=== PATIENT | female | born 1970 | race Caucasian/White ===

== ENCOUNTER 2018-10-09 16:47 | Emergency (ER) | payer MEDICAID ==
[~2018-10-09] VITALS: Ht 162.6 cm; Wt 83.2 kg
[~2018-10-09 16:47] MED LIST: AMOXICILLIN500 MG OR; FLEXERIL PO; NO HOME MEDS; ULTRAM50 M1 PO
[2018-10-09 17:36] LABS: URINE BILIRUBIN - DIPSTICK NEGATIVE (NEGATIVE); URINE BLOOD DIPSTICK LARGE (NEGATIVE); URINE COLOR YELLOW; URINE GLUCOSE - DIPSTICK NEGATIVE (NEGATIVE); URINE KETONE NEGATIVE (NEGATIVE); URINE LEUK ESTERASE TRACE (NEGATIVE); URINE PROTEIN - DIPSTICK NEGATIVE (NEG-TRACE); URINE SPECIFIC GRAVITY 1.025; URINE UROBILINOGEN - DIPSTICK 0.2 E.U./dL (0.2)
[2018-10-09 17:37] LABS: URINE NITRITE - DIPSTICK POSITIVE (Negative)
[2018-10-09 17:39] LABS: BARBITURATES NEGATIVE (NEGATIVE); COCAINE NEGATIVE (NEGATIVE); METHADONE NEGATIVE (NEGATIVE); TETRAHYDROCANNABIONOL NEGATIVE (NEGATIVE); TRICYLIC ANTIDEPRESSANTS NEGATIVE (NEGATIVE)
[2018-10-09 17:40] LABS: OXCYCODONE NEGATIVE (NEGATIVE)
[2018-10-09 17:45] LABS: URINE BACTERIA MANY hpf; URINE SQUAMOUS EPITHELIAL CELL FEW EPI/hpf (0-FEW)
[2018-10-09] MEDS ORDERED: KEFLEX250 MG PO (18:15)
[2018-10-09 18:30] VITALS: BP 152/97
== END 2018-10-09 18:31 | disposition home or self-care (01) ==
LOC: ED 16:47
PROVIDERS: Emergency Medicine
DX: N39.0 Urinary tract infection, site not specified (principal); R10.31 Right lower quadrant pain; F15.90 Other stimulant use, unspecified, uncomplicated; B96.20 Unspecified Escherichia coli [E. coli] as the cause of diseases classified elsewhere

== ENCOUNTER 2019-11-04 | Emergency (ER) | payer OTHER ==
[~2019-11-04] MED LIST changes: +KEFLEX250 MG PO
[2019-11-04] MEDS ORDERED: LASIX20 MG PO (10:37)
[2019-11-04] MEDS ORDERED: LISINOPRIL20 MG PO (10:37)
[2019-11-04] MEDS ORDERED: RANITIDINE150 M1 PO (10:37)
[2019-11-04] MEDS ORDERED: VALPROIC ACD250 M1 PO (10:38)
[2019-11-04 11:32] LABS: HEMATOCRIT 32.3 % (37.0-47.0); HEMOGLOBIN 9.9 g/dl (12.0-16.0); IMMATURE GRANULOCYTES 0.7 % (0.0-5.0); MEAN CORPUSCULAR HGB 25.5 pG CALC (26.0-32.0); MEAN CORPUSCULAR HGB CONC 30.7 g/L CALC (32.0-36.0); NEUT# 6.86 thou/uL (2.00-7.15); RED BLOOD COUNT 3.88 mill/uL (4.20-5.60); RED CELL DISTRI WIDTH 23.8 % (11.5-15.5)
[2019-11-04 11:33] LABS: MEAN CELL VOLUME 83.2 fL CALC (80.0-100.0)
[2019-11-04 11:50] LABS: ALBUMIN 3.8 g/dL (3.2-5.0); ALKALINE PHOSPHATASE 124 u/l (38-126); ANION GAP 14 (6-22 (CALC)); BILIRUBIN, TOTAL 0.6 mg/dL (0.0-1.4); BUN 8 mg/dL (7-17); BUN/CREATININE RATIO 12 (12-20 (CALC)); CARBON DIOXIDE 29 mmol/l (22-30); CHLORIDE 97 mmol/l (95-108); CREATININE 0.7 mg/dL (0.5-1.0); GFR > 60 ML/MIN (>=60 (CALC)); GFR FOR AFR.AMER. > 60 ML/MIN (>=60 (CALC)); LIPASE 197 u/l (23-300); POTASSIUM 3.8 mmol/l (3.5-5.1); SGOT/AST 32 u/l (14-36); SODIUM 135 mmol/l (137-146); TOTAL PROTEIN 7.4 g/dL (6.3-8.2)
[2019-11-04 12:51] LABS: URINE BILIRUBIN - DIPSTICK NEGATIVE (NEGATIVE); URINE BLOOD DIPSTICK MODERATE (NEGATIVE); URINE COLOR YELLOW; URINE GLUCOSE - DIPSTICK NEGATIVE (NEGATIVE); URINE KETONE NEGATIVE (NEGATIVE); URINE LEUK ESTERASE MODERATE (NEGATIVE); URINE NITRITE - DIPSTICK NEGATIVE (Negative); URINE PROTEIN - DIPSTICK NEGATIVE (NEG-TRACE); URINE SPECIFIC GRAVITY <=1.005; URINE UROBILINOGEN - DIPSTICK 0.2 E.U./dL (0.2)
[2019-11-04 13:21] LABS: URINE BACTERIA FEW hpf; URINE SQUAMOUS EPITHELIAL CELL FEW EPI/hpf (0-FEW); URINE TRANSITIONAL EPI. CELLS FEW hpf
[2019-11-04 13:22] LABS: URINE RBC 0-2 RBC/hpf (0-5)
[2019-11-04] MEDS ORDERED: PROCHLORPER25 MG RE (13:50)
[2019-11-07] MEDS ORDERED: XANAX0.5 MG PO (16:55)
[2019-11-08] MEDS ORDERED: LISINOPRIL20 MG PO (15:19)
[2019-11-08] MEDS ORDERED: XANAX0.5 MG PO (15:20)
[2019-11-08] MEDS ORDERED: VALPROIC ACD250 M3 PO (15:21)
== END 2019-11-04 14:40 | disposition home or self-care (01) ==
PROVIDERS: Family Medicine
DX: R10.9 Unspecified abdominal pain (principal); R11.2 Nausea with vomiting, unspecified; I10 Essential (primary) hypertension; Z90.81 Acquired absence of spleen; Z93.0 Tracheostomy status; T50.906A Underdosing of unspecified drugs, medicaments and biological substances, initial encounter; Z91.128 Patient's intentional underdosing of medication regimen for other reason; F17.203 Nicotine dependence unspecified, with withdrawal

== ENCOUNTER 2019-11-09 | Inpatient (IN) | payer OTHER ==
--- NOTE | 2019-11-07 14:22 | NUR ---
PATIENT TO ROOM VIA EMS. ALERT AND ORIENTED X3.
[2019-11-07 14:40] LABS: HEMATOCRIT 30.7 % (37.0-47.0); HEMOGLOBIN 9.5 g/dl (12.0-16.0); IMMATURE GRANULOCYTES 0.4 % (0.0-5.0); MEAN CELL VOLUME 82.7 fL CALC (80.0-100.0); MEAN CORPUSCULAR HGB 25.6 pG CALC (26.0-32.0); MEAN CORPUSCULAR HGB CONC 30.9 g/L CALC (32.0-36.0); NEUT# 8.83 thou/uL (2.00-7.15); RED BLOOD COUNT 3.71 mill/uL (4.20-5.60)
--- NOTE | 2019-11-07 15:20 | NUR ---
PT RESTING ON STRETCHER; NO S/S OF DISTRESS NOTED; VSS; PT DENIES ANY NEEDS AT THIS TIME; PT ADVISED OF POC; AND CONTINUED WAIT TIME; WILL CONTINUE TO MONITOR
[2019-11-07 16:11] LABS: ALBUMIN 3.3 g/dL (3.2-5.0); ALKALINE PHOSPHATASE 116 u/l (38-126); ANION GAP 14 (6-22 (CALC)); BILIRUBIN, TOTAL 0.5 mg/dL (0.0-1.4); BUN 8 mg/dL (7-17); BUN/CREATININE RATIO 12 (12-20 (CALC)); CARBON DIOXIDE 26 mmol/l (22-30); CHLORIDE 101 mmol/l (95-108); CREATININE 0.7 mg/dL (0.5-1.0); GFR > 60 ML/MIN (>=60 (CALC)); GFR FOR AFR.AMER. > 60 ML/MIN (>=60 (CALC)); POTASSIUM 3.5 mmol/l (3.5-5.1); SGOT/AST 22 u/l (14-36); SODIUM 137 mmol/l (137-146); TOTAL PROTEIN 6.8 g/dL (6.3-8.2)
--- NOTE | 2019-11-07 16:20 | NUR ---
PT RESTING ON STRETCHER; DR CASTLE AT BEDSIDE TO DISCUSS POC AND PLAN TO ADMIT; VSS; WILL CONTINUE TO MONITOR
--- NOTE | 2019-11-07 17:20 | NUR ---
PT RESTING ON STRETCHER; NO S/S OF DISTRESS NOTED; PT STATES SHE HASN'T HAD A "GOOD BM SINCE DISCHARGE ON SATURDAY"; VSS; PT ADVISED ON CONTINUED WAIT TIME; WILL CONTINUE TO MONITOR
--- NOTE | 2019-11-07 18:00 | NUR ---
PT C/O NAUSEA AND SMALL AMOUNT OF EMESIS NOTED; PT DENIES NEED FOR ANY MEDICATIONS AT THIS TIME; VSS; COOL RAG GIVEN FOR COMFORT; FAMILY AT BEDSIDE; WILL CONTINUE TO MONITOR
--- NOTE | 2019-11-07 18:26 | NUR ---
PATIENT RECEIVED INTO ROOM 262 FROM ER VIA STRETCHER. PATIENT AMBULATED TO STANDING SCALE FOR ADMISSION WEIGHT, 174.5#. ASSISTED INTO BED, ORIENTED TO SURROUNDINGS. EXPLAINED USE OF CALL PABLO AND BED CONTROLS.
[2019-11-07 18:29] VITALS: BP 130/84
--- NOTE | 2019-11-07 18:30 | NUR ---
Admission Note Report Given to: ASHLEY ACOSTA Transported by: Wheelchair X Stretcher Transported with: X Nurse Transporter X Patent IV O2 Liquefaction And Regasification Helper Location: ICU X MS2
--- NOTE | 2019-11-07 19:10 | NUR ---
REPORT FROM JUVENTINO RAMIREZ. PT SITTING UP IN BED NO APPARENT DISTRESS NOTED. PT DENIES ANY PAIN OR DISCOMFORT. IV SITE APPEARS HEALTHY. DISCUSSED POC. PT VERBALIZED UNDERSTANDING. CALL LIGHT WITHIN REACH. WILL CONTINUE TO MONITOR.
--- NOTE | 2019-11-07 19:30 | NUR ---
ADMISSION ASSESSMENT PART A COMPLETED. REPORT GIVEN TO Kiki PRASAD/FELA. PATIENT PROVIDED WITH DINNER.
--- NOTE | 2019-11-07 23:50 | NUR ---
PT CALLED FOR ASSISTANCE FROM BATHROOM. PT TOOK SHOWER. PROVIDED CLEAN GOWN AND LINENS AT THIS TIME. ASSISTED PT BACK TO BED. PT REQUESTING ABD PAD FOR ABD WOUND, PT APPLIED. NO WOUND CARE ORDERS AT THIS TIME. PT DENIES ANY OTHER WANTS OR NEEDS. CALL LIGHT WITHIN REACH. WILL CONTINUE TO MONITOR.
[2019-11-08 03:20] VITALS: BP 128/79
--- NOTE | 2019-11-08 03:23 | NUR ---
PT RESTING IN BED WITH EYES CLOSED. NO APPARENT DISTRESS NOTED. CALL LIGHT WITHIN REACH. WILL CONTINUE TO MONITOR.
[2019-11-08 05:35] LABS: HEMATOCRIT 29.5 % (37.0-47.0); HEMOGLOBIN 9.1 g/dl (12.0-16.0); IMMATURE GRANULOCYTES 0.4 % (0.0-5.0); MEAN CELL VOLUME 84.5 fL CALC (80.0-100.0); MEAN CORPUSCULAR HGB 26.1 pG CALC (26.0-32.0); MEAN CORPUSCULAR HGB CONC 30.8 g/L CALC (32.0-36.0); NEUT# 8.06 thou/uL (2.00-7.15); RED BLOOD COUNT 3.49 mill/uL (4.20-5.60); RED CELL DISTRI WIDTH 23.8 % (11.5-15.5)
[2019-11-08 05:45] LABS: ANION GAP 11 (6-22 (CALC)); BUN 6 mg/dL (7-17); BUN/CREATININE RATIO 9 (12-20 (CALC)); CARBON DIOXIDE 26 mmol/l (22-30); CHLORIDE 104 mmol/l (95-108); CREATININE 0.6 mg/dL (0.5-1.0); GFR > 60 ML/MIN (>=60 (CALC)); GFR FOR AFR.AMER. > 60 ML/MIN (>=60 (CALC)); MAGNESIUM 1.4 mg/dL (1.6-2.3); POTASSIUM 3.9 mmol/l (3.5-5.1); SODIUM 138 mmol/l (137-146)
--- NOTE | 2019-11-08 06:03 | NUR ---
JUICE PROVIDED UPON REQUEST.
--- NOTE | 2019-11-08 07:05 | NUR ---
REPORT RECEIVED FROM FELA HUSSEIN;PT APPEARS TO BE SLEEPING IN SEMI FOWLERS POSITION;NO S/S OF DISTRESS NOTED;RESPIRATIONS EVEN AND UNLABORED ON RA;IV FLUIDS INFUSING WITH EASE;CONTACT PRECAUTIONS IN PLACE;ALL SAFETY PRECAUTIONS NOTED WITH BED IN THE LOWEST POSITION AND CALL LIGHT IN REACH;WILL CONTINUE TO MONITOR
--- NOTE | 2019-11-08 07:38 | NUR ---
Vancomycin consult Age: 49 yo Serum creatinine: 0.6 mg/dL Height: 64.0 Inches Weight (kg): 79 IBW (kg): 54.70 Dosing wt(kg): 79 Estimated Creatinine clearance (ml/min): 100 Vd (liters): 55.3 (factor used: 0.7 L/kg) Severo (hr-1): 0.087 Half life (hrs): 7.97 Continue 1000 mg q 12 hrs at 0500 & 1700, with an expected Cpeak of 26 mcg/ml and an expected Ctrough of 11 mcg/ml. Trough 11/09/19 at 0400.
--- NOTE | 2019-11-08 07:40 | NUR ---
PT RESTING AT BEDSIDE,A&O X3;VS OBTAINED AND ASSESSMENT COMPLETED;PT DENIES ANY CURRENT PAIN OR DISCOMFORTS,PAIN SCALE AND REPORTING EDUCATED;ABDOMEN SOFT ON PALPATION AND ACTIVE IN ALL 4 QUADRANTS;ABDOMINAL DRESSING CDI;STRONG PEDAL PULSES;DRESSING TO COCCYX CDI;EMS #18G TO RIGTH HAND INFUSING NS @ 80ML/HR,SITE APPEARS HEALTHY;CONTACT PRECAUTIONS REMAIN IN PLACE;PT DENIES ANY ADDITIONAL NEEDS AND IS ENCOURAGED TO CALL FOR ASSISTANCE IF NEEDED;CALL LIGHT IN REACH;WILL CONTINUE TO MONITOR
[2019-11-08 07:47] VITALS: BP 156/86
--- NOTE | 2019-11-08 10:31 | NUR ---
CONSENT OBTAINED TO REQUEST MEDICAL RECORDS FROM [facility] FOR PREVIOUS ADMISSION RECORDS.REQUEST FAXED TO REPLACED BY [facility] AT THIS TIME.
--- NOTE | 2019-11-08 11:10 | NUR ---
PT REQUESTING XANAX FOR ANXIETY.PT CURRENTLY ONLY HAS A [facility] ORDER,JOCELIN RAND NOTIFIED OF REQUEST;NEW ORDER RECEIVED.
--- NOTE | 2019-11-08 11:20 | NUR ---
PT RESTING IN SEMI FOWLERS POSITION WITH VISITOR AT BEDSIDE;REPIRATIONS EVEN AND UNLABORED ON RA;IV SITE PATENT INFUSING WITH EASE,MAG CURRENTLY INFUSING PER ORDER;PT MEDICATED WITH X1 XANAX 0.5MG PO FOR ANXIETY AT THIS TIME;PT EDUCATED ON THE NEED FOR A UA SAMPLE AND VERBALIZES UNDERSTANDING;PT ALSO PROVIDED AN I.S. PER REQUEST AND IS ENCOURAGED TO USE 10X PER HOUR,PT DEMONSTARTED USAGE;PT DENIES ANY ADDITIONAL NEEDS AND IS ENCOURAGED TO CALL FOR ASSISTANCE IF NEEDED;CALL LIGHT IN REACH;WILL CONTINUE TO MONITOR
--- NOTE | 2019-11-08 12:40 | NUR ---
AT BEDSIDE DISCUSSING POC WITH PT AND VISITOR.
--- NOTE | 2019-11-08 12:48 | NUR ---
X2 ATTEMPTS AT NEW IV SITE UNSUCCESSFUL, PER IT IS OK TO KEEP EMS IV SITE BECAUSE PICCLINE SHOULD BE PLACED IN THE MORNING 11/09/19.
[2019-11-08 15:24] VITALS: BP 117/61
--- NOTE | 2019-11-08 16:40 | NUR ---
PT RESTING IN SUPINE POSITION;RESPIRATIONS EVEN AND UNLABORED ON RA;PT DENIES ANY CURRENT PAIN OR NEEDS;IV SITE PATENT INFUSING NS WITH EASE PER ORDER,ABX HUNG AT THIS TIME;AQUACEL DRESSING APPLIED TO COCCYX;PT REQUESTS TO SPEAK TO MORE REGARDING PLANS FOR I&D OF ABDOMEN TOMORROW 11/09/19 BEFORE OBTAINING CONSENT;PT DENIES ANY ADDITIONAL NEEDS AND IS ENCOURAGED TO CALL FOR ASSISTANCE IF NEEDED;CALL LIGHT IN REACH;WILL CONTINUE TO MONITOR
[2019-11-08 17:08] LABS: URINE BILIRUBIN - DIPSTICK NEGATIVE (NEGATIVE); URINE BLOOD DIPSTICK SMALL (NEGATIVE); URINE COLOR YELLOW; URINE GLUCOSE - DIPSTICK NEGATIVE (NEGATIVE); URINE KETONE NEGATIVE (NEGATIVE); URINE LEUK ESTERASE TRACE (NEGATIVE); URINE NITRITE - DIPSTICK NEGATIVE (Negative); URINE PH 5.5 (4.5-8.0); URINE PROTEIN - DIPSTICK NEGATIVE (NEG-TRACE); URINE UROBILINOGEN - DIPSTICK 0.2 E.U./dL (0.2)
[2019-11-08 17:16] LABS: URINE SQUAMOUS EPITHELIAL CELL FEW EPI/hpf (0-FEW)
[2019-11-08 19:00] VITALS: BP 138/81
--- NOTE | 2019-11-08 19:05 | NUR ---
REPORT FROM SHAUNNA CHAHAL. PT SITTING UP IN BED. VISITORS PRESENT IN ROOM. PT ALERT AND ORIENTED. PT REQUESTING TO BE UNHOOKED FROM IV TO AMBULATE IN HALLS. PUMP UNPLUGGED FROM WALL AT THIS TIME. DISCUSSED POC. PT VERBALIZED UNDERSTANDING. CALL LIGHT WITHIN REACH. WILL CONTINUE TO MONITOR.
--- NOTE | 2019-11-08 19:25 | NUR ---
PT AMBULATING IN [place] WITH VISITOR.
--- NOTE | 2019-11-08 19:44 | NUR ---
PT AMBULATED FOR ICU WAITING ROOM FOUND WITH THREE MALES SITTING IN THERE STATING SHE WAS JUST RESTING. PT RETURNED TO ROOM VIA WHEELCHAIR ACCOMPAINED BY THREE MALES.
--- NOTE | 2019-11-08 19:44 | NUR ---
PT AMBULATED TO ICU WAITING ROOM FOUND WITH THREE MALES SITTING IN THERE STATING SHE WAS JUST RESTING. PT RETURNED TO ROOM VIA WHEELCHAIR ACCOMPAINED BY THREE MALES.
--- NOTE | 2019-11-08 21:16 | NUR ---
TWO VISITORS IN TO SEE PT AT THIS TIME.
[~2019-11-09] MED LIST changes: +LASIX20 MG PO; +LISINOPRIL20 MG PO; +PROCHLORPER25 MG RE; +RANITIDINE150 M1 PO; +VALPROIC ACD250 M1 PO; +VALPROIC ACD250 M3 PO; +XANAX0.5 MG PO
--- NOTE | 2019-11-09 00:15 | NUR ---
PT RESTING IN BED WITH EYES CLOSED. ATTEMPTED TO WAKE PT AT THIS TIME TO EDUCATE ON NPO ORDER FOR PROCEDURE IN AM. PT OPENED EYES BRIEFLY AND ROLLED OVER AND PULLED COVERS UP. ALL FOOD AND DRINKS REMOVED FROM BEDSIDE TABLE AND PLACED ON COUNTER ACROSS ROOM. WILL CONTINUE TO MONITOR.
[2019-11-09 04:28] LABS: HEMATOCRIT 29.3 % (37.0-47.0); HEMOGLOBIN 9.1 g/dl (12.0-16.0); MEAN CORPUSCULAR HGB 26.1 pG CALC (26.0-32.0); MEAN CORPUSCULAR HGB CONC 31.1 g/L CALC (32.0-36.0); RED BLOOD COUNT 3.49 mill/uL (4.20-5.60); RED CELL DISTRI WIDTH 23.9 % (11.5-15.5)
[2019-11-09 04:32] LABS: ANION GAP 10 (6-22 (CALC)); BUN 6 mg/dL (7-17); BUN/CREATININE RATIO 9 (12-20 (CALC)); CARBON DIOXIDE 26 mmol/l (22-30); CHLORIDE 109 mmol/l (95-108); CREATININE 0.7 mg/dL (0.5-1.0); GFR > 60 ML/MIN (>=60 (CALC)); GFR FOR AFR.AMER. > 60 ML/MIN (>=60 (CALC)); POTASSIUM 3.6 mmol/l (3.5-5.1); SODIUM 141 mmol/l (137-146)
--- NOTE | 2019-11-09 04:51 | NUR ---
PT REQUESTING ICE. PT NPO AT THIS TIME. PT EMOTIONAL, PERCUSSION INSTRUCTOR EDUCATED PT AT THIS TIME ABOUT PROCEDURE AND IMPORTANCE OF REMAINING NPO. PT VERBALIZED UNDERSTANDING. IV ABT INFUSING WITHOUT DIFFICULTY. CALL LIGHT WITHIN REACH. WILL CONTINUE TO MONITOR.
[2019-11-09 04:54] VITALS: BP 127/80
--- NOTE | 2019-11-09 07:52 | NUR ---
PRELIMINARY BLOOD CULTURE SHOW TWO BOTTLES GROWING GRAM POSITIVE COCCI CALLED TO DR NORTON. PT HAS COVERAGE WITH VANCOMYCIN AND CEFEPIME.
--- NOTE | 2019-11-09 08:04 | NUR ---
ASSESSMENT DONE. PT IS A&O X3 BUT FORGETFUL AT TIMES. PT HAS ANXIETY TEARFUL. MEDICATED PT WITH DILAUDID. IVF FLUIDS INFUSING WELL. PT HAS 18 EMS SITE BUT REFUSING IT TO BE CHANGE. DRESSING IN ABD. CALL LIGHT IN REACH.
[2019-11-09 08:05] VITALS: BP 143/86
--- NOTE | 2019-11-09 08:05 | NUR ---
THOMAS ALVAREZ AT BEDSIDE TO DISCUSS POC. PT IS ANXIOUS. CALL LIGHT IN REACH.
--- NOTE | 2019-11-09 08:42 | NUR ---
CALLED TOBY MONROE FROM X-RAY RE:JOCELIN RAMSEYRNS THAT PT HAS BEEN TAKING XARELTO AND DOES NOT WANT A PICC LINE AT THIS TIME.
--- NOTE | 2019-11-09 10:00 | NUR ---
INGRIS [phone] FROM [facility] CALLED FOR UPDATE Re: PT.
--- NOTE | 2019-11-09 12:20 | NUR ---
WENT DOWN TO CT TO MEDICATED PT WITH DILAUDID AND ATIVAN PER JOCELIN ALVAREZ.
--- NOTE | 2019-11-09 13:17 | NUR ---
PT IS TEARFUL STATING HAVING PAIN. MEDICATED PT WITH ULTRAM. ICE CHIPS PROVIDED AND PO FLUIDS. FRIEND IN ROOM. YANDY IN PLACE. CALL LIGHT IN REACH.
[2019-11-09 15:00] VITALS: BP 97/63
--- NOTE | 2019-11-09 15:20 | NUR ---
PT IS RESTING IN BED VISITING IN ROOM WITH FAMILY. CALL LIGHT IN REACH.
--- NOTE | 2019-11-09 18:26 | NUR ---
CALLED [facility] AT REGARDING THIS PT BEING PLACED ON WOUND VAC IN THE AM BY DR. MULLINS. CALLED AND SPOKE TO GOGO WAS GIVEN INFORMATION STATED THEY WILL BRING A WOUND VAC. THE CONFIRMATION NUMBER IS [id number].
--- NOTE | 2019-11-09 18:43 | NUR ---
CALLED [facility] AT REGARDING THIS PT. SPOKE TO GILBERT. TECH IS SUPPOSE TO CALL WHEN CLOSE WITH MATTRESS. CONFIRMATION NUMBER IS [id number].
--- NOTE | 2019-11-09 19:00 | NUR ---
RECEIVED REPORT FROM NURSE AIDE, PATIENT RESTING IN BED, EYES CLOSED, WITH EVEN UNLABORED BREATHING CALL LIGHT AT REACH
[2019-11-09 19:14] VITALS: BP 125/75
--- NOTE | 2019-11-09 23:00 | NUR ---
DRESSING ON ABDOMEN REMOVED, CLEANED INCISION WITH SALINE, AND PAT DRY COVERED WITH NEW CLEAN DR DRESSING
--- NOTE | 2019-11-10 | NUR ---
PATIENT APPEARS TO BE RESTING IN BED WITH EYES CLOSED, WITH YANDY DRAIN ON LEFT UPPER QUADRANT DRAINING HASSAN COLORED FLUID, CALL LIGHT AT REACH.
[2019-11-10 01:04] VITALS: BP 98/59
[2019-11-10 03:34] VITALS: BP 115/68
--- NOTE | 2019-11-10 03:38 | NUR ---
FLAT SORTING MACHINE CLERK NOTIFIED THAT PATIENT HAS AN ORDER FOR AN AIR MATRESS
--- NOTE | 2019-11-10 04:31 | NUR ---
PATIENT REMAINS ON CONTACT ISOLATION FOR MRSA IN BLOOD, APPEARS TO BE SLEEPING WITH EYES CLOSED CALL LIGHT AT REACH.
[2019-11-10 06:30] LABS: HEMATOCRIT 29.8 % (37.0-47.0); HEMOGLOBIN 8.7 g/dl (12.0-16.0); IMMATURE GRANULOCYTES 0.4 % (0.0-5.0); MEAN CELL VOLUME 85.9 fL CALC (80.0-100.0); MEAN CORPUSCULAR HGB 25.1 pG CALC (26.0-32.0); MEAN CORPUSCULAR HGB CONC 29.2 g/L CALC (32.0-36.0); NEUT# 7.45 thou/uL (2.00-7.15); RED BLOOD COUNT 3.47 mill/uL (4.20-5.60); RED CELL DISTRI WIDTH 23.7 % (11.5-15.5)
--- NOTE | 2019-11-10 06:55 | NUR ---
REPORT RECEIVED FROM ASHLEY ARGUETA;PT APPEARS TO BE SLEEPING IN SEMI FOWLERS POSITION;NO S/S OF DISTRESS NOTED;RESPIRATIONS EVEN AND UNLABORED ON RA;IV FLUIDS INFUSING WITH EASE PER ORDER;ALL SAFETY PRECAUTIONS IN PLACE WITH BED IN THE LOWEST POSITION AND CALL LIGHT IN REACH;WILL CONTINUE TO MONITOR
[2019-11-10 07:00] LABS: ANION GAP 12 (6-22 (CALC)); BUN 7 mg/dL (7-17); BUN/CREATININE RATIO 10 (12-20 (CALC)); CARBON DIOXIDE 23 mmol/l (22-30); CHLORIDE 103 mmol/l (95-108); CREATININE 0.7 mg/dL (0.5-1.0); GFR > 60 ML/MIN (>=60 (CALC)); GFR FOR AFR.AMER. > 60 ML/MIN (>=60 (CALC)); MAGNESIUM 1.5 mg/dL (1.6-2.3); POTASSIUM 3.6 mmol/l (3.5-5.1); SODIUM 135 mmol/l (137-146)
[2019-11-10 08:40] VITALS: BP 146/87
--- NOTE | 2019-11-10 08:40 | NUR ---
PT RESTING IN SEMI FOWLERS POSITION,A&OX3;VS OBTAINED AND ASSESSMENT COMPLETED;PT DENIES ANY CURRENT PAIN BUT DOES REQUEST ANXIETY MEDICATION,PT TO BE MEDICATED WITH PRN XANAX PER ORDER;RESPIRATIONS EVEN AND UNLABORED,SHALLOW ON RA;ABDOMEN DISTENDED/SOFT ON PALPATION AND ACTIVE IN ALL 4 QUADRANTS;DRESSING TO ABDOMINAL WOUND CDI AND YANDY DRAIN NOTED TO LUQ;STRONG PEDAL PULSES;DRESSING TO PRESSURE ULCER TO COCCYX CDI;EMS #18G TO RIGHT HAND INFUSING NS PER ORDER,PT REFUSES IV CHANGE;PT DENIES ANY ADDITIONAL NEEDS AT THIS TIME AND IS ENCOURAGED TO CALL FOR ASSISTANCE IF NEEDED;CALL LIGHT IN REACH;WILL CONTINUE TO MONITOR
--- NOTE | 2019-11-10 08:49 | NUR ---
LAB AT BEDSIDE
--- NOTE | 2019-11-10 09:18 | NUR ---
ECHO AT BEDSIDE
--- NOTE | 2019-11-10 10:22 | NUR ---
AT BEDSIDE DISCUSSING POC INCLUDING POSSIBLE PLANS TO TRANSER TO OUTSIDE FACILITY.
--- NOTE | 2019-11-10 11:29 | NUR ---
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
--- NOTE | 2019-11-10 11:45 | NUR ---
PT APPEARS TO BE SLEEPING IN SEMI FOWLERS POSITION,WAKES EASILY TO VERBAAL STIMULI;RESPIRATIONS EVEN AND UNLABORED ON RA;PT DENIES ANY CURRENT PAIN OR NEEDS;YANDY DRAIN REMAINS PATENT TO LUQ;IV FLUID INFUSING WITH EASE PER ORDER AND ABX HUNG AT THIS TIME;PT INSTRUCTED ON NPO DIET FOR ABDOMINAL ULTRASOUND AND VERBALIZES UNDERSTANDING;PT TO BE TRANSFERRED TO OUTSIDE FACILITY AND VERBALIZES UNDERSTANDING WELL;PT ENCOURAGED TO CALL FOR ASSISTANCE IF NEEDED;CALL LIGHT IN REACH;WILL CONTINUE TO MONITOR
--- NOTE | 2019-11-10 11:54 | NUR ---
CONSULT OBTAINED BY VIA TELEHEALTH WITH ANRP AT BEDSIDE.
[2019-11-10 15:40] VITALS: BP 124/64
--- NOTE | 2019-11-10 16:20 | NUR ---
PT RETURNED BACK FROM ULTRASOUND IN STABLE CONDITION;ASSISTED BACK INTO AIR [facility] BED;RESPIRATIONS EVEN AND UNLABORED ON RA;PT DENIES ANY CURRENT PAIN OR NEEDS;IV FLUIDS RE-STARTED PER ORDER;YANDY DRAIN REMAINS PATENT TO LUQ;PT DENIES ANY ADDITIONAL NEEDS AT THIS TIME;TRANSFER PROCESS WAS INITATED, AWAITING CASE MANAGEMENT WITH TRANSPORT TIME;PT DENIES ANY ADDITIONAL NEEDS AND IS ENCOURAGED TO CALL FOR ASSISTANC IF NEEDED;CALL LIGHT IN REACH;WILL CONTINUE TO MONITOR
--- NOTE | 2019-11-10 16:51 | NUR ---
Vancomycin trough level reported as 29 this morning. This level was drawn at incorrect time. Trough is being re-drawn now and this will represent true trough level for the patient.
--- NOTE | 2019-11-10 16:53 | NUR ---
LAB AT BEDSIDE
--- NOTE | 2019-11-10 19:00 | NUR ---
RECEIVED REPORT FROM NURSE MAZA PATIENT RESTING IN BED, FAMILY IN ROOM, EVEN UNLABORED BREATHING CALL LIGHT AT REACH.
[2019-11-10 20:00] VITALS: BP 140/67
--- NOTE | 2019-11-10 22:00 | NUR ---
PATIENT ALERT AND ORIENTED ABLE TO MAKE NEEDS KNOWN, WITH EMS SITE ON RT HAND G 18 INFUSING NORMAL SALINE @ 80 CC/HR, PATIENT REFUSED TO CHANGED IV SITE, WITH YANDY DRAIN ON LEFT UPPER QUADRANT WITH HASSAN COLORED DISCHARGED, FLUSHED DRAIN ORDERED, PATIENT IN ON AIR MATRESS, C/O ABDOMINAL PAIN PRN PAIN MEDICATION GIVEN WILL REEVALUATE.
[2019-11-11] VITALS: BP 131/60
--- NOTE | 2019-11-11 | NUR ---
PATIENT APPEARS TO BE SLEEPING WITH EYES CLOSED, EVEN UNLABORED BREATHING CALL LIGHT AT REACH.
[2019-11-11 04:00] VITALS: BP 135/72
--- NOTE | 2019-11-11 05:28 | NUR ---
DRESSING ON ABDOMINAL INCISION CHANGED AT THIS, TOLERATED, RESTING IN BED, CALL LIGHT AT REACH, YANDY DRAIN EMPTIED.
--- NOTE | 2019-11-11 06:15 | NUR ---
PATIENT C/O PAIN ON ABDOMEN AND LEFT LATERAL SIDE, WAS CRYING PRN LORTAB GIVEN AT THIS TIME, WILL REEVALUATE.
--- NOTE | 2019-11-11 06:15 | NUR ---
PATIENT C/O OF ANXIETY, WAS CRYING PRN XANAX GIVEN AT THIS TIME.
--- NOTE | 2019-11-11 06:30 | NUR ---
RECEIVED A PHONE CALL FROM CT NEW ORDER FOT CT OF THE ABDOMEN AND PELVIS, PATIENT STATED NOT READY AT THIS TIME, R/T TO PAIN
--- NOTE | 2019-11-11 07:00 | NUR ---
REPORT RECEIVED FROM ASHLEY ARGUETA;PT RESTING IN SEMI FOWLERS POSITION;RESPIRATIONS EVEN AND UNLABORED ON RA;PT DENIES ANY CURRENT PAIN BUT REQUESTS ANXIETY MEDICATION,PT TO BE MEDICATED WITH PRN ANTONIO BY ASHLEY ARGUETA;IV FLUIDS INFUSING TO RIGHT HAND WITH EASE;CONTACT PRECAUTIONS IN PLACE;ENCOURAGED TO CALL FOR ASSISTANCE IF NEEDED;FALL PRECAUTIONS IN PLACE WITH BED IN THE LOWEST POSITION AND CALL LIGHT IN REACH;WILL CONTINUE TO MONITOR
--- NOTE | 2019-11-11 07:10 | NUR ---
PATIENT AGAIN WAS CRYING, STATING SHE IS HAVING ANXIETY AND PANIC ATTACK R/T HAVING ALL THIS PROCEDURES AND DIAGNOSTICS THAT WAS BEING ORDERED AND WAS REQUESTING FOR PRN ANXIETY MEDICATION. PRN XANAX GIVE AT [address] ABOUT PATIENT REQUEST TO GIVE A LITTLE TIME, FOR ANXIETY MEDICATION TO WORK.
[2019-11-11 07:23] LABS: LIPASE 51 u/l (23-300)
--- NOTE | 2019-11-11 07:29 | NUR ---
11/10/19 Attempted to see patient- patient being prepped for possible transfer- not appropriate at this time
[2019-11-11 07:30] LABS: AMYLASE < 30 u/l (30-110)
[2019-11-11 07:39] VITALS: BP 123/61
--- NOTE | 2019-11-11 07:44 | NUR ---
PATIENT READY TO GO TO CT, MORE CALM CALLED [facility] AND INFORMED THAT PATIENT IS READY. AND WAS TRANSPORTED VIA WHEELCHAIR.
--- NOTE | 2019-11-11 07:50 | NUR ---
PT TRANSPORTED TO [facility] VIA WHEELCHAIR IN STABLE CONDITION ACCOMPANIED BY WRITTER.
--- NOTE | 2019-11-11 08:05 | NUR ---
PT RETURNED BACK TO MED/SURG ROOM 262 IN STABLE CONDITION VIA WHEELCHAIR.
[2019-11-11 08:47] LABS: HEMATOCRIT 31.5 % (37.0-47.0); HEMOGLOBIN 9.6 g/dl (12.0-16.0); IMMATURE GRANULOCYTES 0.4 % (0.0-5.0); MEAN CORPUSCULAR HGB 25.6 pG CALC (26.0-32.0); MEAN CORPUSCULAR HGB CONC 30.5 g/L CALC (32.0-36.0); NEUT# 8.86 thou/uL (2.00-7.15); RED BLOOD COUNT 3.75 mill/uL (4.20-5.60); RED CELL DISTRI WIDTH 23.3 % (11.5-15.5)
[2019-11-11 08:53] LABS: ALBUMIN 2.8 g/dL (3.2-5.0); ALKALINE PHOSPHATASE 90 u/l (38-126); ANION GAP 13 (6-22 (CALC)); BILIRUBIN, TOTAL 0.4 mg/dL (0.0-1.4); BUN 4 mg/dL (7-17); BUN/CREATININE RATIO 6 (12-20 (CALC)); CARBON DIOXIDE 23 mmol/l (22-30); CHLORIDE 103 mmol/l (95-108); CREATININE 0.6 mg/dL (0.5-1.0); GFR > 60 ML/MIN (>=60 (CALC)); GFR FOR AFR.AMER. > 60 ML/MIN (>=60 (CALC)); POTASSIUM 3.6 mmol/l (3.5-5.1); SGOT/AST 15 u/l (14-36); SODIUM 136 mmol/l (137-146)
--- NOTE | 2019-11-11 09:15 | NUR ---
PT RESTING IN SEMI FOWELRS POSITION,A&O X3;PT DENIES ANY CURRENT PAIN OR NEEDS,PAIN SCALE AND REPORTING EDUCATED;RESPIRATIONS EVEN AND UNLABORED ON RA,CLEAR/DIMINISHED LUNG SOUNDS NOTED;ABDOMEN DISTENDED/SOFT ON PALPATION AND ACTIVE IN ALL 4 QUADRANTS;ABDOMINAL DRESSING CDI;YANDY DRAIN NOTED TO LUQ DRAINING PURLENT BROWN FLUID,SITE FLUSHED PER ORDER;DRESSING TO COCCYX CDI;WEAK PEDAL PULSES;EMS #18G TO RIGHT HAND INFUSING NS @ 80ML/HR,SITE APPEARS HEALTHY;PT AGAIN EDUCATED ON IV SITE EXPIRATION AND REFUSES CHANGE;NICOTINE PATCH PLACED TO RIGHT SHOULDER;PT VERBALIZES UNDERSTANDING OF PLANS TO TRANSFER TO [facility],AWAITING BED ACCEPTANCE;PT DENIES ANY ADDITIONAL NEEDS AND IS ENCOURAGED TO CALL FOR ASSISTANCE IF NEEDED;FALL PRECAUTIONS IN PLACE WITH CALL LIGHT IN REACH;WILL CONTINUE TO MONITOR
--- NOTE | 2019-11-11 09:40 | NUR ---
Attempted to treat pt at 09:35AM however pt declined stating she had been awake since 04:00AM and wanted to be left alone to get back to sleep.
--- NOTE | 2019-11-11 11:25 | NUR ---
PT RESTING IN SEMI FOWLERS POSITION WITH MULTIPLE VISITORS AT BEDSIDE;RESPIRATIONS EVEN AND UNLABORED ON RA;PT DENIES ANY CURRENT PAIN OR NEEDS;IV FLUIDS INFUSING WITH EASE TO RIGHT HAND;YANDY DRAIN PATENT TO LUQ;ASSESSMENT REMAINS UNCHANGED AT THIS TIME;AWAITING ACCEPTANCE TO OUTSIDE FACILITY;ENCOURAGED PT TO CALL FOR ASSISTANCE IF NEEDED;CONTACT PRECAUTIONS IN PLACE;CALL LIGHT IN REACH;WILL CONTINUE TO MONITOR
--- NOTE | 2019-11-11 13:10 | NUR ---
PT RESTING IN SEMI FOWLERS POSITION;RESPIRATIONS EVEN AND UNLABORED ON RA;PT DENIES ANY CURRENT NEEDS;PT EDUCATED ON APPROX [place] TIME OF 20-30MINS AND VERBALIZES UNDERSTANDING;CALL LIGHT IN REACH;WILL CONTINUE TO MONITOR
--- NOTE | 2019-11-11 13:19 | NUR ---
PT LEFT IN STABLE CONDITION VIA [facility]SP[facility].
--- NOTE | 2019-11-11 13:39 | NUR ---
REPORT CALLED TO ASHLEY LALA AT [facility].
== END 2019-11-11 13:24 | disposition short-term general hospital (02) | DRG 862 ==
PROVIDERS: Internal Medicine; Nurse Practitioner Adult Health; Nurse Practitioner Family; ADMIT Internal Medicine
PROC: 0W9G30Z Drainage of Peritoneal Cavity with Drainage Device, Percutaneous Approach (ICD-10-PCS; principal; 2019-11-09)
PROC: 0JD73ZZ Extraction of Back Subcutaneous Tissue and Fascia, Percutaneous Approach (ICD-10-PCS; 2019-11-10)
DX: T81.43XA Infection following a procedure, organ and space surgical site, initial encounter (principal); A41.02 Sepsis due to Methicillin resistant Staphylococcus aureus; K65.1 Peritoneal abscess; L89.153 Pressure ulcer of sacral region, stage 3; K57.20 Diverticulitis of large intestine with perforation and abscess without bleeding; E87.1 Hypo-osmolality and hyponatremia; I10 Essential (primary) hypertension; D64.9 Anemia, unspecified; D47.3 Essential (hemorrhagic) thrombocythemia; E83.42 Hypomagnesemia; F32.9 Major depressive disorder, single episode, unspecified; F41.1 Generalized anxiety disorder; F17.200 Nicotine dependence, unspecified, uncomplicated; R01.1 Cardiac murmur, unspecified; R82.71 Bacteriuria; Y83.6 Removal of other organ (partial) (total) as the cause of abnormal reaction of the patient, or of later complication, without mention of misadventure at the time of the procedure; Z90.81 Acquired absence of spleen; Z79.01 Long term (current) use of anticoagulants; Z86.718 Personal history of other venous thrombosis and embolism
CPT/HCPCS: J0692; J2060; J3475; Q3014; Q9967

== ENCOUNTER 2019-12-31 | Emergency (ER) | payer SELFPAY ==
[2019-12-31 13:45] LABS: URINE BILIRUBIN - DIPSTICK NEGATIVE (NEGATIVE); URINE BLOOD DIPSTICK TRACE-INTACT (NEGATIVE); URINE COLOR YELLOW; URINE GLUCOSE - DIPSTICK NEGATIVE (NEGATIVE); URINE KETONE NEGATIVE (NEGATIVE); URINE LEUK ESTERASE NEGATIVE (NEGATIVE); URINE NITRITE - DIPSTICK NEGATIVE (Negative); URINE PH 5.5 (4.5-8.0); URINE PROTEIN - DIPSTICK NEGATIVE (NEG-TRACE); URINE SPECIFIC GRAVITY >=1.030
[2019-12-31 14:08] LABS: HEMATOCRIT 34.7 % (37.0-47.0); IMMATURE GRANULOCYTES 0.4 % (0.0-5.0); MEAN CELL VOLUME 87.6 fL CALC (80.0-100.0); MEAN CORPUSCULAR HGB 27.8 pG CALC (26.0-32.0); MEAN CORPUSCULAR HGB CONC 31.7 g/L CALC (32.0-36.0); RED BLOOD COUNT 3.96 mill/uL (4.20-5.60); RED CELL DISTRI WIDTH 16.2 % (11.5-15.5)
[2019-12-31 14:15] LABS: ALKALINE PHOSPHATASE 71 u/l (38-126); AMYLASE 36 u/l (30-110); ANION GAP 19 (6-22 (CALC)); BUN 19 mg/dL (7-17); BUN/CREATININE RATIO 20 (12-20 (CALC)); CARBON DIOXIDE 22 mmol/l (22-30); CHLORIDE 98 mmol/l (95-108); CREATININE 0.9 mg/dL (0.5-1.0); GFR > 60 ML/MIN (>=60 (CALC)); GFR FOR AFR.AMER. > 60 ML/MIN (>=60 (CALC)); LIPASE 36 u/l (23-300); POTASSIUM 4.3 mmol/l (3.5-5.1); SGOT/AST 18 u/l (14-36); SODIUM 135 mmol/l (137-146)
[2019-12-31 14:51] LABS: ALBUMIN 4.3 g/dL (3.2-5.0); BILIRUBIN, TOTAL 0.6 mg/dL (0.0-1.4); TOTAL PROTEIN 8.1 g/dL (6.3-8.2)
[2019-12-31 15:28] LABS: BARBITURATES NEGATIVE (NEGATIVE); COCAINE NEGATIVE (NEGATIVE); METHADONE NEGATIVE (NEGATIVE); OXCYCODONE NEGATIVE (NEGATIVE); TETRAHYDROCANNABIONOL NEGATIVE (NEGATIVE); TRICYLIC ANTIDEPRESSANTS NEGATIVE (NEGATIVE)
[2019-12-31] MEDS ORDERED: AMOXICILLIN875 MG PO (17:34)
[2019-12-31] MEDS ORDERED: ONDANSETRON4 MG PO (17:35)
[2019-12-31] MEDS ORDERED: PROTONIX40 M2 PO (17:35)
== END 2020-01-01 00:51 | disposition short-term general hospital (02) | DRG 862 ==
PROVIDERS: Family Medicine
DX: T81.43XA Infection following a procedure, organ and space surgical site, initial encounter (principal); K65.1 Peritoneal abscess; I10 Essential (primary) hypertension; B96.20 Unspecified Escherichia coli [E. coli] as the cause of diseases classified elsewhere; Y83.6 Removal of other organ (partial) (total) as the cause of abnormal reaction of the patient, or of later complication, without mention of misadventure at the time of the procedure; Z90.81 Acquired absence of spleen
CPT/HCPCS: Q9967

== ENCOUNTER 2020-08-03 03:37 | Emergency (ER) | payer SELFPAY ==
[~2020-08-03] VITALS: Ht 162.6 cm; Wt 79.5 kg
[~2020-08-03 03:37] MED LIST changes: +AMOXICILLIN875 MG PO; +ONDANSETRON4 MG PO; +PROTONIX40 M2 PO
[2020-08-03] MEDS ORDERED: ISOSORB MONO30 MG PO (03:59)
[2020-08-03] MEDS ORDERED: ATORVASTATIN CA40 MG PO (04:00)
[2020-08-03] MEDS ORDERED: DILTIAZEM120 MG PO ×2 (04:00→04:02)
[2020-08-03] MEDS ORDERED: ASPIRIN EC LOW81 MG PO (04:00)
[2020-08-03 05:21] LABS: IMMATURE GRANULOCYTES 0.5 % (0.0-5.0); MEAN CORPUSCULAR HGB 20.4 pG CALC (26.0-32.0); MEAN CORPUSCULAR HGB CONC 29.1 g/dL CAL (32.0-36.0); NEUT# 13.8 thou/uL (2.00-7.15); RED BLOOD COUNT 3.92 mill/uL (4.20-5.60); RED CELL DISTRI WIDTH 18.1 % (11.5-15.5)
[2020-08-03 05:24] LABS: HEMATOCRIT 27.5 % (37.0-47.0); MEAN CELL VOLUME 70.2 fL CALC (80.0-100.0)
[2020-08-03 05:39] LABS: ALBUMIN 4.3 g/dL (3.2-5.0); ALKALINE PHOSPHATASE 96 u/l (38-126); AMYLASE 67 u/l (30-110); ANION GAP 14 (6-22 (CALC)); BUN 17 mg/dL (7-17); BUN/CREATININE RATIO 19 (12-20 (CALC)); CARBON DIOXIDE 24 mmol/l (22-30); CHLORIDE 105 mmol/l (95-108); CREATININE 0.9 mg/dL (0.5-1.0); GFR > 60 ML/MIN (>=60 (CALC)); GFR FOR AFR.AMER. > 60 ML/MIN (>=60 (CALC)); LIPASE 157 u/l (23-300); POTASSIUM 4.6 mmol/l (3.5-5.1); SGOT/AST 17 u/l (14-36); SODIUM 139 mmol/l (137-146); TOTAL PROTEIN 7.6 g/dL (6.3-8.2)
[2020-08-03 05:50] LABS: MYOGLOBIN 25 ng/mL (0 - 62)
[2020-08-03 05:56] LABS: BILIRUBIN, TOTAL 0.2 mg/dL (0.0-1.4)
[2020-08-03 06:13] LABS: URINE BILIRUBIN - DIPSTICK NEGATIVE (NEGATIVE); URINE BLOOD DIPSTICK NEGATIVE (NEGATIVE); URINE COLOR YELLOW; URINE GLUCOSE - DIPSTICK NEGATIVE (NEGATIVE); URINE KETONE NEGATIVE (NEGATIVE); URINE LEUK ESTERASE NEGATIVE (NEGATIVE); URINE NITRITE - DIPSTICK NEGATIVE (Negative); URINE PROTEIN - DIPSTICK TRACE mg/dL (NEG-TRACE); URINE UROBILINOGEN - DIPSTICK 0.2 E.U./dL (0.2)
[2020-08-03 09:00] LABS: ACT PARTIAL THROMBO TIME 22.1 SECONDS (20.0-32.5); PROTHROMBIN TIME 9.5 SECONDS (9.0-12.5)
[2020-08-03 09:23] VITALS: BP 134/70
== END 2020-08-03 09:23 | disposition short-term general hospital (02) | DRG 311 ==
LOC: ED 03:37
PROVIDERS: Emergency Medicine; Family Medicine
DX: I20.0 Unstable angina (principal); D72.829 Elevated white blood cell count, unspecified; I49.9 Cardiac arrhythmia, unspecified; I10 Essential (primary) hypertension; F41.9 Anxiety disorder, unspecified; Z86.79 Personal history of other diseases of the circulatory system; Z79.899 Other long term (current) drug therapy; Z20.828 Contact with and (suspected) exposure to other viral communicable diseases
CPT/HCPCS: J1644; Q9967

== ENCOUNTER 2020-08-24 13:10 | Emergency (ER) | payer SELFPAY ==
[~2020-08-24] VITALS: Ht 162.6 cm; Wt 80.0 kg
[~2020-08-24 13:10] MED LIST changes: +ASPIRIN EC LOW81 MG PO; +ATORVASTATIN CA40 MG PO; +DILTIAZEM120 MG PO; +ISOSORB MONO30 MG PO
[2020-08-24 14:27] LABS: HEMATOCRIT 31.7 % (37.0-47.0); HEMOGLOBIN 9.5 g/dl (12.0-16.0); IMMATURE GRANULOCYTES 0.3 % (0.0-5.0); MEAN CORPUSCULAR HGB 23.5 pG CALC (26.0-32.0); NEUT# 6.34 thou/uL (2.00-7.15); RED BLOOD COUNT 4.05 mill/uL (4.20-5.60); RED CELL DISTRI WIDTH 26.5 % (11.5-15.5)
[2020-08-24 14:30] LABS: MEAN CELL VOLUME 78.3 fL CALC (80.0-100.0)
[2020-08-24 14:42] LABS: ACT PARTIAL THROMBO TIME 21.6 SECONDS (20.0-32.5); ALBUMIN 3.9 g/dL (3.2-5.0); ALKALINE PHOSPHATASE 71 u/l (38-126); AMYLASE 58 u/l (30-110); ANION GAP 13 (6-22 (CALC)); BUN 19 mg/dL (7-17); BUN/CREATININE RATIO 22 (12-20 (CALC)); CARBON DIOXIDE 22 mmol/l (22-30); CHLORIDE 109 mmol/l (95-108); CREATININE 0.8 mg/dL (0.5-1.0); GFR > 60 ML/MIN (>=60 (CALC)); GFR FOR AFR.AMER. > 60 ML/MIN (>=60 (CALC)); LIPASE 121 u/l (23-300); POTASSIUM 4.5 mmol/l (3.5-5.1); PROTHROMBIN TIME 9.8 SECONDS (9.0-12.5); SGOT/AST 15 u/l (14-36); SODIUM 140 mmol/l (137-146); TOTAL PROTEIN 7.1 g/dL (6.3-8.2)
[2020-08-24 14:52] LABS: BILIRUBIN, TOTAL 0.4 mg/dL (0.0-1.4)
[2020-08-24 17:10] VITALS: BP 87/46
== END 2020-08-24 17:10 | disposition short-term general hospital (02) | DRG 311 ==
LOC: ED 13:10
DX: I20.0 Unstable angina (principal); I10 Essential (primary) hypertension; F41.9 Anxiety disorder, unspecified; Z86.79 Personal history of other diseases of the circulatory system; Z95.5 Presence of coronary angioplasty implant and graft

== ENCOUNTER 2020-09-24 10:56 | Emergency (ER) | payer SELFPAY ==
[~2020-09-24] VITALS: Ht 162.6 cm; Wt 88.0 kg
[2020-09-24 11:58] LABS: HEMATOCRIT 32.5 % (37.0-47.0); HEMOGLOBIN 9.7 g/dl (12.0-16.0); IMMATURE GRANULOCYTES 0.3 % (0.0-5.0); MEAN CORPUSCULAR HGB 25.4 pG CALC (26.0-32.0); MEAN CORPUSCULAR HGB CONC 29.8 g/dL CAL (32.0-36.0); NEUT# 7.79 thou/uL (2.00-7.15); RED BLOOD COUNT 3.82 mill/uL (4.20-5.60); RED CELL DISTRI WIDTH 26.1 % (11.5-15.5)
[2020-09-24 12:19] LABS: MEAN CELL VOLUME 85.1 fL CALC (80.0-100.0)
[2020-09-24] MEDS ORDERED: IRON27 MG PO (12:21)
[2020-09-24] MEDS ORDERED: VIT C/VIT E PO (12:21)
[2020-09-24] MEDS ORDERED: NORVASC2.5 M1 PO (12:21)
[2020-09-24] MEDS ORDERED: CLOPIDOGREL75 MG PO (12:22)
[2020-09-24 12:33] LABS: ALBUMIN 4.2 g/dL (3.2-5.0); ALKALINE PHOSPHATASE 68 u/l (38-126); ANION GAP 15 (6-22 (CALC)); BILIRUBIN, TOTAL 0.3 mg/dL (0.0-1.4); BUN 13 mg/dL (7-17); BUN/CREATININE RATIO 18 (12-20 (CALC)); CARBON DIOXIDE 22 mmol/l (22-30); CHLORIDE 107 mmol/l (95-108); CREATININE 0.8 mg/dL (0.5-1.0); GFR > 60 ML/MIN (>=60 (CALC)); GFR FOR AFR.AMER. > 60 ML/MIN (>=60 (CALC)); LIPASE 66 u/l (23-300); POTASSIUM 4.6 mmol/l (3.5-5.1); SGOT/AST 19 u/l (14-36); SODIUM 139 mmol/l (137-146); TOTAL PROTEIN 7.6 g/dL (6.3-8.2)
[2020-09-24 12:35] LABS: ACT PARTIAL THROMBO TIME 22.2 SECONDS (20.0-32.5); PROTHROMBIN TIME 9.7 SECONDS (9.0-12.5)
[2020-09-24 12:45] LABS: MYOGLOBIN 28 ng/mL (0 - 62)
[2020-09-24 17:00] VITALS: BP 111/60
== END 2020-09-24 17:00 | disposition short-term general hospital (02) | DRG 311 ==
LOC: ED 10:56
DX: I20.0 Unstable angina (principal); I10 Essential (primary) hypertension; F41.9 Anxiety disorder, unspecified; Z95.5 Presence of coronary angioplasty implant and graft

== ENCOUNTER 2020-12-15 15:38 | Observation (INO) | payer MEDICAID ==
[~2020-12-15] VITALS: Ht 162.6 cm; Wt 90.4 kg
[~2020-12-15 15:38] MED LIST changes: +CITALOPRAM20 M1 PO; +CLOPIDOGREL75 MG PO; +DILTIAZEM HCL120 M1 PO; +IRON27 MG PO; -ISOSORB MONO30 MG PO; +ISOSORBIDE DINI30 MG PO; +NORVASC2.5 M1 PO; +VIT C/VIT E PO
[2020-12-15 16:38] VITALS: BP 105/64
[2020-12-15 17:37] LABS: HEMATOCRIT 25.4 % (37.0-47.0); HEMOGLOBIN 7.7 g/dl (12.0-16.0); IMMATURE GRANULOCYTES 0.4 % (0.0-5.0); MEAN CELL VOLUME 79.1 fL CALC (80.0-100.0); MEAN CORPUSCULAR HGB CONC 30.3 g/dL CAL (32.0-36.0); NEUT# 6.84 thou/uL (2.00-7.15); RED BLOOD COUNT 3.21 mill/uL (4.20-5.60); RED CELL DISTRI WIDTH 18.2 % (11.5-15.5)
[2020-12-15 17:57] LABS: ANION GAP 10 (6-22 (CALC)); BUN 15 mg/dL (7-17); BUN/CREATININE RATIO 17 (12-20 (CALC)); CHLORIDE 105 mmol/l (95-108); CREATININE 0.9 mg/dL (0.5-1.0); GFR > 60 ML/MIN (>=60 (CALC)); GFR FOR AFR.AMER. > 60 ML/MIN (>=60 (CALC)); POTASSIUM 3.9 mmol/l (3.5-5.1); SODIUM 137 mmol/l (137-146)
[2020-12-15 17:59] LABS: CARBON DIOXIDE 26 mmol/l (22-30)
[2020-12-15 19:00] VITALS: BP 117/70
[2020-12-15 22:06] LABS: URINE BILIRUBIN - DIPSTICK NEGATIVE (NEGATIVE); URINE BLOOD DIPSTICK MODERATE (NEGATIVE); URINE CLARITY CLEAR; URINE COLOR YELLOW; URINE GLUCOSE - DIPSTICK NEGATIVE (NEGATIVE); URINE KETONE NEGATIVE (NEGATIVE); URINE LEUK ESTERASE NEGATIVE (Negative); URINE NITRITE - DIPSTICK NEGATIVE (Negative); URINE PROTEIN - DIPSTICK NEGATIVE (NEG-TRACE); URINE SPECIFIC GRAVITY 1.025; URINE UROBILINOGEN - DIPSTICK 0.2 E.U./dL (0.2)
[2020-12-15 22:27] LABS: URINE WBC 0-2 WBC/hpf (0-5)
[2020-12-15 23:00] VITALS: BP 103/61
[2020-12-16] VITALS (10 sets, daily range): BP systolic 100–141; BP diastolic 55–79
[2020-12-16 09:26] LABS: HEMOGLOBIN 9.2 g/dl (12.0-16.0); IMMATURE GRANULOCYTES 0.4 % (0.0-5.0); MEAN CELL VOLUME 79.2 fL CALC (80.0-100.0); MEAN CORPUSCULAR HGB 24.3 pG CALC (26.0-32.0); MEAN CORPUSCULAR HGB CONC 30.7 g/dL CAL (32.0-36.0); NEUT# 6.61 thou/uL (2.00-7.15); RED BLOOD COUNT 3.79 mill/uL (4.20-5.60); RED CELL DISTRI WIDTH 17.7 % (11.5-15.5)
[2020-12-16 09:51] LABS: ALBUMIN 3.8 g/dL (3.2-5.0); ALKALINE PHOSPHATASE 65 u/l (38-126); ANION GAP 13 (6-22 (CALC)); BUN 13 mg/dL (7-17); BUN/CREATININE RATIO 17 (12-20 (CALC)); CARBON DIOXIDE 24 mmol/l (22-30); CHLORIDE 105 mmol/l (95-108); CREATININE 0.8 mg/dL (0.5-1.0); GFR > 60 ML/MIN (>=60 (CALC)); GFR FOR AFR.AMER. > 60 ML/MIN (>=60 (CALC)); POTASSIUM 4.1 mmol/l (3.5-5.1); SGOT/AST 18 u/l (14-36); SODIUM 137 mmol/l (137-146); TOTAL PROTEIN 6.8 g/dL (6.3-8.2)
[2020-12-16 10:10] LABS: BILIRUBIN, TOTAL 0.6 mg/dL (0.0-1.4)
[2020-12-16] MEDS ORDERED: LIPITOR20 M1 PO (11:49)
[2020-12-16] MEDS ORDERED: XARELTO STARTER1 TAB (11:49)
[2020-12-16] MEDS ORDERED: NITROSTAT0.4 MG SL (11:50)
[2020-12-16] MEDS ORDERED: CELEXA20 MG PO (11:50)
[2020-12-17 03:50] VITALS: BP 126/78
[2020-12-17 05:37] LABS: HEMATOCRIT 30.1 % (37.0-47.0); HEMOGLOBIN 9.3 g/dl (12.0-16.0); MEAN CELL VOLUME 79.6 fL CALC (80.0-100.0); MEAN CORPUSCULAR HGB 24.6 pG CALC (26.0-32.0); MEAN CORPUSCULAR HGB CONC 30.9 g/dL CAL (32.0-36.0); RED BLOOD COUNT 3.78 mill/uL (4.20-5.60); RED CELL DISTRI WIDTH 17.8 % (11.5-15.5)
[2020-12-17 05:53] LABS: ANION GAP 14 (6-22 (CALC)); BUN 15 mg/dL (7-17); BUN/CREATININE RATIO 18 (12-20 (CALC)); CARBON DIOXIDE 24 mmol/l (22-30); CHLORIDE 104 mmol/l (95-108); CREATININE 0.8 mg/dL (0.5-1.0); GFR > 60 ML/MIN (>=60 (CALC)); GFR FOR AFR.AMER. > 60 ML/MIN (>=60 (CALC)); MAGNESIUM 1.7 mg/dL (1.6-2.3); SODIUM 138 mmol/l (137-146)
[2020-12-17 08:00] VITALS: BP 142/75
[2020-12-17 12:25] VITALS: BP 105/55
== END 2020-12-17 14:31 | disposition home or self-care (01) ==
LOC: MS2 15:38
PROVIDERS: Nurse Practitioner; ADMIT Internal Medicine; ATTEND Internal Medicine
DX: R07.9 Chest pain, unspecified (principal); D64.9 Anemia, unspecified; I25.111 Atherosclerotic heart disease of native coronary artery with angina pectoris with documented spasm; I10 Essential (primary) hypertension; D68.9 Coagulation defect, unspecified; N92.0 Excessive and frequent menstruation with regular cycle; F41.9 Anxiety disorder, unspecified; K21.9 Gastro-esophageal reflux disease without esophagitis; Z86.79 Personal history of other diseases of the circulatory system; Z87.891 Personal history of nicotine dependence; Z95.5 Presence of coronary angioplasty implant and graft; Z96.89 Presence of other specified functional implants; Z20.822 Contact with and (suspected) exposure to COVID-19
CPT/HCPCS: G0378; G0379; J1756; P9016

== ENCOUNTER 2021-01-20 02:43 | Observation (INO) | payer MEDICAID ==
[~2021-01-20] VITALS: Ht 132.1 cm; Wt 91.1 kg
[~2021-01-20 02:43] MED LIST changes: +CELEXA20 MG PO; +LIPITOR20 M1 PO; +NITROSTAT0.4 MG SL; +XARELTO STARTER1 TAB
--- NOTE | 2021-01-20 02:44 | NUR ---
BY WC TO ROOM
[2021-01-20 03:32] LABS: HEMATOCRIT 34.9 % (37.0-47.0); HEMOGLOBIN 10.7 g/dl (12.0-16.0); IMMATURE GRANULOCYTES 0.8 % (0.0-5.0); MEAN CELL VOLUME 90.4 fL CALC (80.0-100.0); MEAN CORPUSCULAR HGB 27.7 pG CALC (26.0-32.0); MEAN CORPUSCULAR HGB CONC 30.7 g/dL CAL (32.0-36.0); NEUT# 20.1 thou/uL (2.00-7.15); RED BLOOD COUNT 3.86 mill/uL (4.20-5.60); RED CELL DISTRI WIDTH 27.9 % (11.5-15.5)
--- NOTE | 2021-01-20 03:51 | NUR ---
W/P/D SKIN NO CP NO COUGH A/OX3 SR NO ECTOPY
[2021-01-20 03:53] LABS: ALBUMIN 4.5 g/dL (3.2-5.0); ALKALINE PHOSPHATASE 72 u/l (38-126); AMYLASE 63 u/l (30-110); ANION GAP 13 (6-22 (CALC)); BILIRUBIN, TOTAL 0.7 mg/dL (0.0-1.4); BUN 14 mg/dL (7-17); BUN/CREATININE RATIO 16 (12-20 (CALC)); CARBON DIOXIDE 25 mmol/l (22-30); CHLORIDE 103 mmol/l (95-108); CREATININE 0.9 mg/dL (0.5-1.0); GFR > 60 ML/MIN (>=60 (CALC)); GFR FOR AFR.AMER. > 60 ML/MIN (>=60 (CALC)); LIPASE 105 u/l (23-300); SODIUM 137 mmol/l (137-146)
[2021-01-20 03:56] LABS: SGOT/AST 51 u/l (14-36)
[2021-01-20 03:57] LABS: ACT PARTIAL THROMBO TIME 22.1 SECONDS (20.0-32.5); PROTHROMBIN TIME 9.9 SECONDS (9.0-12.5)
[2021-01-20 04:04] LABS: MYOGLOBIN 18 ng/mL (0 - 62)
[2021-01-20 04:15] LABS: D-DIMER 0.38 mg/L (0.19-0.60)
--- NOTE | 2021-01-20 04:55 | NUR ---
W/P/D SKIN SR NO ST T CHANGES DENIES PAIN OF ANY SOURCE
--- NOTE | 2021-01-20 05:20 | NUR ---
UP TO RR TO VOID CLEAR YELLOW URINE SPEC 56TO LAB SR NO ECTOPY NO ST T CHANGES
[2021-01-20 05:31] LABS: URINE BILIRUBIN - DIPSTICK NEGATIVE (NEGATIVE); URINE BLOOD DIPSTICK TRACE-INTACT (NEGATIVE); URINE COLOR YELLOW; URINE GLUCOSE - DIPSTICK NEGATIVE (NEGATIVE); URINE KETONE NEGATIVE (NEGATIVE); URINE LEUK ESTERASE NEGATIVE (NEGATIVE); URINE PH 6.5 (4.5-8.0); URINE PROTEIN - DIPSTICK NEGATIVE (NEG-TRACE); URINE UROBILINOGEN - DIPSTICK 0.2 E.U./dL (0.2)
[2021-01-20 05:32] LABS: URINE NITRITE - DIPSTICK NEGATIVE (Negative)
--- NOTE | 2021-01-20 06:40 | NUR ---
NO CP NO SOB NOR SWEATS SL NAUSEA NOW BUT NO EMESIS.SR/SB NO ST T CHANGES NO ECTOPY SLEEPING IN INTERVALS
--- NOTE | 2021-01-20 07:00 | NUR ---
PT REPORT TO NURSE BERNICE
--- NOTE | 2021-01-20 07:10 | NUR ---
PT CARE ASSUMED. PT RESTING IN ROOM.
--- NOTE | 2021-01-20 08:00 | NUR ---
PT GIVEN FOOD TRAY AND EXPLAINED THAT SHE HAS A ROOM NOW.
[2021-01-20 09:54] VITALS: BP 128/76
--- NOTE | 2021-01-20 10:38 | NUR ---
PT ARROVED TO ROOM 273 AROUND 0834, SEEN AWAKE, ALERT, ORIENTED X 3. LUNGS CLEAR, RA. ABDOMEN BENIGN, BM YESTERDAY. PT STATES OFF AND ON CHEST PAIN FOR SEVERAL MONTHS. NO DISTRESS, NO COMPLAINTS.
[2021-01-20 11:00] VITALS: BP 128/76
--- NOTE | 2021-01-20 15:37 | NUR ---
Discharge instructions given. Patient verbalizes understanding of same. Discharged in good condition via Wheelchair to Home with family. All belongings sent with pt.
--- NOTE | 2021-01-20 15:39 | NUR ---
PT EXPRESSES CONCERN OF RECURRENT CONDITION OF CP AND IS AFRAID SHE MIGHT BE HAVING A HEART ATTACK, NURSE LISTENS THERAPEUTICALLY AND ADVISED PT SHE MADE THE RIGHT DECISION TO COME TO ED, ALSO INFORMED PT OTHER CONDITIONS SUCH ANXIETY AND STRESS PRESENTS SIMILAR SYMPTOMS SHE WAS EXPERIENCING, SHE DENIED ANY PAIN AT TIME OF D/C AND STATED SHE FELT BETTER.
== END 2021-01-20 15:30 | disposition home or self-care (01) ==
LOC: ED 02:43 → MS2 06:42
PROVIDERS: Family Medicine; ADMIT Internal Medicine; ATTEND Internal Medicine
DX: I25.111 Atherosclerotic heart disease of native coronary artery with angina pectoris with documented spasm (principal); D72.829 Elevated white blood cell count, unspecified; I10 Essential (primary) hypertension; F41.9 Anxiety disorder, unspecified; K21.9 Gastro-esophageal reflux disease without esophagitis; Z87.891 Personal history of nicotine dependence; Z20.822 Contact with and (suspected) exposure to COVID-19
CPT/HCPCS: G0378; J1650

== ENCOUNTER 2021-03-07 14:59 | Observation (INO) | payer MEDICAID ==
[~2021-03-07] VITALS: Ht 162.6 cm; Wt 95.0 kg
--- NOTE | 2021-03-07 15:06 | NUR ---
PATIENT AMBULATES TO THE BATHROOM, UNASSISTED, STEADY GAIT. AAOX4
--- NOTE | 2021-03-07 15:20 | NUR ---
PATIENT DENIES CHEST PAIN AT THIS TIME. STATES IT HAS GONE AWAY AT THIS TIME.
[2021-03-07] MEDS ORDERED: PLAVIX75 MG PO (15:21)
[2021-03-07] MEDS ORDERED: TRAZODONE HCL50 MG PO (15:21)
[2021-03-07] MEDS ORDERED: ASPIRIN81 MG PO (15:21)
[2021-03-07] MEDS ORDERED: ISOSORB MONO30 MG PO (15:22)
[2021-03-07] MEDS ORDERED: XANAX0.25 MG PO (15:22)
[2021-03-07] MEDS ORDERED: TOPROL XL50 MG PO (15:23)
--- NOTE | 2021-03-07 15:40 | NUR ---
3 ATTEMPTS TO OBTAIN BLOOD. NO IV STARTED. SHIKHA GUZMAN AWARE. BLOOD AND URINE SENT TO LAB.
[2021-03-07 16:17] LABS: URINE BILIRUBIN - DIPSTICK NEGATIVE (NEGATIVE); URINE BLOOD DIPSTICK NEGATIVE (NEGATIVE); URINE COLOR YELLOW; URINE GLUCOSE - DIPSTICK NEGATIVE (NEGATIVE); URINE KETONE NEGATIVE (NEGATIVE); URINE LEUK ESTERASE NEGATIVE (NEGATIVE); URINE PROTEIN - DIPSTICK NEGATIVE (NEG-TRACE); URINE SPECIFIC GRAVITY >=1.030; URINE UROBILINOGEN - DIPSTICK 0.2 E.U./dL (0.2)
[2021-03-07 16:18] LABS: HEMATOCRIT 34.2 % (37.0-47.0); HEMOGLOBIN 10.9 g/dl (12.0-16.0); IMMATURE GRANULOCYTES 0.5 % (0.0-5.0); MEAN CELL VOLUME 93.7 fL CALC (80.0-100.0); MEAN CORPUSCULAR HGB 29.9 pG CALC (26.0-32.0); MEAN CORPUSCULAR HGB CONC 31.9 g/dL CAL (32.0-36.0); NEUT# 7.38 thou/uL (2.00-7.15); RED BLOOD COUNT 3.65 mill/uL (4.20-5.60); RED CELL DISTRI WIDTH 18.7 % (11.5-15.5)
[2021-03-07 16:20] LABS: URINE NITRITE - DIPSTICK NEGATIVE (Negative)
--- NOTE | 2021-03-07 16:26 | NUR ---
PATIENT RESTING, EYES CLOSED, NAD NOTED. CALL PABLO IN REACH, VSS.
[2021-03-07 16:37] LABS: ALBUMIN 3.8 g/dL (3.2-5.0); ALKALINE PHOSPHATASE 68 u/l (38-126); ANION GAP 12 (6-22 (CALC)); BUN 12 mg/dL (7-17); BUN/CREATININE RATIO 14 (12-20 (CALC)); CARBON DIOXIDE 24 mmol/l (22-30); CHLORIDE 105 mmol/l (95-108); CREATININE 0.9 mg/dL (0.5-1.0); GFR > 60 ML/MIN (>=60 (CALC)); GFR FOR AFR.AMER. > 60 ML/MIN (>=60 (CALC)); LIPASE 59 u/l (23-300); POTASSIUM 3.9 mmol/l (3.5-5.1); SGOT/AST 25 u/l (14-36); SODIUM 136 mmol/l (137-146); TOTAL PROTEIN 7.1 g/dL (6.3-8.2)
[2021-03-07 16:40] LABS: BILIRUBIN, TOTAL 0.4 mg/dL (0.0-1.4)
--- NOTE | 2021-03-07 16:50 | NUR ---
IV STARTED TO LAC BY ASHLEY MUJICA. #20.
--- NOTE | 2021-03-07 17:00 | NUR ---
DR CASTLE AT BEDSIDE FOR EVAL AND TO DISCUSS PLAN OF CARE.
[2021-03-07] MEDS ORDERED: RANOLAZINE ER500 MG PO (17:06)
--- NOTE | 2021-03-07 17:44 | NUR ---
PATIENT CONTINUES TO DENY ANY PAIN AT THIS TIME. CONTINUING TO MONITOR.
--- NOTE | 2021-03-07 18:10 | NUR ---
FOOD TRAY PROVIDED, HOB ELEVATED FOR COMFORT.
--- NOTE | 2021-03-07 18:35 | NUR ---
PATIENT BELONGINGS INVENTORY LIST COMPLETED.
--- NOTE | 2021-03-07 19:11 | NUR ---
REPORT CALLED TO ASHLEY SAENZ. ALL QUESTIONS ANSWERED.
--- NOTE | 2021-03-07 19:45 | NUR ---
PATIENT TRANSPORTED UPSTAIRS VIA WC, AAOX4 RESPIRATIONS EVEN AND UNLABORED. NAD NOTED.
[2021-03-07 19:46] VITALS: BP 105/63
--- NOTE | 2021-03-07 21:00 | NUR ---
PATIENT ADMITTED FROM VIA WHEELCHAIR WITH ER STAFF IN ATTENDANCE. PATIENT IS ABLE TO TRANSFER SELF TO THE BED. AWAKE ALERT AND ORIENTEDX3 ADMITTED FOR CHEST PAIN. DENIES ANY PAIN AT THIS TIME. STATES THAT SHE HAS CHEST PAIN THIS MORNING AND BY THE TIME SHE GOT TO THE ER THE PAIN HAD SUBSIDED. STATES THAT SHE IS A PATIENT OF DR. LANTIGUA AND THIS PAIN HAS BEEN GOING ON FOR SEVERAL MONTHS NOW. TELE MONITOR IN PLACE READING SR-65 WITH FIRST DEGREE AVB. SALINE LOCK TO LAC INTACT AND APPEARS HEALTHY AT THIS TIME. LUNGS ARE CLEAR. ABD IS SOFT WITH BS+. LAST BM WAS TODAY. DENIES ANY PROBLE WITH URINATION. NO PERIPHERAL EDEMA AND PULSE ARE PALPABLE. PATIENT PROVIDED WITH MICROWAVE MEAL AND DRINK. HS MED INCLUDING XANAX 0.25MG PO GIVEN. ORIENTED TO ROOM AND SURROUNDING. INSTRUCTED ON USE OF NRSE CALL LIGHT SYSTEM, TV REMOTE AND PHONE. SAFETY PRECAUTIONS REINFORCED. CALL LIGHT IN REACH. WILL CONT TO MONITOR.
--- NOTE | 2021-03-07 23:12 | NUR ---
PATIENT RESTING IN BED WATCHING TV. PROVIDED WITH SNACKS PER PATIENT REQUEST. NO C/O PAIN AT THIS TIME. TELE MONITOR IN PLACE. SALINE LOCK TO LEFT AC INTACT. CALL LIGHT IN REACH. WILL CONT TO MONITOR.
[2021-03-08] VITALS: BP 115/71
[2021-03-08 03:20] VITALS: BP 153/79
--- NOTE | 2021-03-08 03:30 | NUR ---
PATIENT CALLED AND C/O CHEST PAIN-RESPONDED TO THE ROOM AND PATIENT RESTING IN BED. VS TAKEN AND RECORDED. CALLED UC IN ER AND STATES THAT TELE READING IS SR AT THIS TIME. RT CALLED AND EKG DONE AT BEDSIDE. PATIENT STATES THAT HER PAIN 7/10 AT THIS TIME. MEDICATED WITH NITRO 0.4MG SL ORDERED FOR CHEST PAIN. PATIENT STATES THAT THE PAIN IS SUBSIDING. EKG WAS NSR. CALL LIGHT IN REACH. WILL CONT TO MONITOR.
[2021-03-08 04:00] VITALS: BP 96/54
--- NOTE | 2021-03-08 04:32 | NUR ---
PATIENT RESTING IN BED-APPEARS RESPS ARE NOISY. EYES ARE CLOSED. APPEARS SNORING. TELE MONITOR IN PLACE. CALL LIGHT IN REACH. WILL CONT TO MONITOR.
--- NOTE | 2021-03-08 06:04 | NUR ---
0550-PATIENT CALLED AND C/O CHEST PAIN AGAIN. 7/10 ON PAIN SCALE. LAB WORK WAS JUST DRAWN. SKIN IS WARM AND DRY. VS-146/91, HR-62, O2 SAT IS 100% ON ROOM AIR. US CALLED AND TELE READING NSR-1ST DEGREE AVB WITH PVC'S. NITRO 0.4MG SL GIVEN AND EKG WAS DONE. PAIN IS RELEVED AT THIS TIME. PATIENT RESTING IN BED. CALL LIGHT IN REACH. WILL CONT TO MONITOR.
[2021-03-08 06:22] LABS: HEMATOCRIT 34.9 % (37.0-47.0); IMMATURE GRANULOCYTES 0.5 % (0.0-5.0); MEAN CELL VOLUME 94.3 fL CALC (80.0-100.0); MEAN CORPUSCULAR HGB 29.7 pG CALC (26.0-32.0); MEAN CORPUSCULAR HGB CONC 31.5 g/dL CAL (32.0-36.0); NEUT# 6.4 thou/uL (2.00-7.15); RED BLOOD COUNT 3.7 mill/uL (4.20-5.60); RED CELL DISTRI WIDTH 18.6 % (11.5-15.5)
[2021-03-08 06:37] LABS: ALBUMIN 3.5 g/dL (3.2-5.0); ALKALINE PHOSPHATASE 73 u/l (38-126); ANION GAP 13 (6-22 (CALC)); BILIRUBIN, TOTAL 0.5 mg/dL (0.0-1.4); BUN 11 mg/dL (7-17); BUN/CREATININE RATIO 11 (12-20 (CALC)); CALCULATED LDLCHOLESTEROL 58 mg/dL (62-129 (CALC)); CARBON DIOXIDE 24 mmol/l (22-30); CHLORIDE 105 mmol/l (95-108); CHOLESTEROL HDL RATIO 3.4 (<4.4 (CALC)); CREATININE 0.9 mg/dL (0.5-1.0); GFR > 60 ML/MIN (>=60 (CALC)); GFR FOR AFR.AMER. > 60 ML/MIN (>=60 (CALC)); HDL CHOLESTEROL 36 mg/dL (>=40); MAGNESIUM 1.7 mg/dL (1.6-2.3); SGOT/AST 17 u/l (14-36); SODIUM 138 mmol/l (137-146); TOTAL CHOLESTEROL 121 mg/dl (0-199); TOTAL PROTEIN 6.6 g/dL (6.3-8.2); TOTAL TRIGLYCERIDES 139 mg/dl (30-149); VLDL CHOLESTROL 28 mg/dl (1-41 (CALC))
[2021-03-08 07:20] VITALS: BP 123/71
--- NOTE | 2021-03-08 07:20 | NUR ---
ASSESSMENT IS COMPLETED: IV SITE IS FREE FROM REDNESS OR EDEMA. HR IS REG,PULSES ARE STRONG X4, ABD IS SOFT WITH ACTIVE BS. BREATH SOUNDS ARE CLEAR,BILATERALLY, TELE MONITOR IN PLACE. PT C/O CHEST PAIN , UPON ENTERING THE ROOM. PT ALREADY TOOK HER OWN NITRO. CONTINUE TO OSBERVE AND MONITOR.
--- NOTE | 2021-03-08 07:20 | NUR ---
PT C/O CHEST PAIN. UPON GOING INTO THE ROOM PT ALREADY TOOK HER NITRO.
--- NOTE | 2021-03-08 08:07 | NUR ---
PT C/O CHEST PAIN DEENA ARPN NOTIFIED , ORDERING AN EKG STAT
[2021-03-08 10:20] VITALS: BP 99/59
--- NOTE | 2021-03-08 11:24 | NUR ---
IV SITE AND TELE TAKEN OFF PT. DISCHARGE INSTRUCTIONS GIVEN AND VERBALIZED UNDERSTANDING.
--- NOTE | 2021-03-08 11:30 | NUR ---
PT TRANSPORTED TO GO HOME. IV SITE TAKEN OUT WITH CATHETER INTACT NO REDNESS OR EDEMA. Discharge instructions given. Patient verbalizes understanding of same. Discharged in stable condition via Wheelchair to Home with family. All belongings sent with pt.
== END 2021-03-08 11:24 | disposition home or self-care (01) ==
LOC: ED 14:59 → ED-I 17:20 → ED 17:37 → MS2 17:38
PROVIDERS: Nurse Practitioner; ADMIT Internal Medicine; ATTEND Internal Medicine
DX: I25.111 Atherosclerotic heart disease of native coronary artery with angina pectoris with documented spasm (principal); I10 Essential (primary) hypertension; D64.9 Anemia, unspecified; F41.9 Anxiety disorder, unspecified; K21.9 Gastro-esophageal reflux disease without esophagitis; Z87.891 Personal history of nicotine dependence; Z95.5 Presence of coronary angioplasty implant and graft; Z86.711 Personal history of pulmonary embolism; Z86.718 Personal history of other venous thrombosis and embolism; Z20.822 Contact with and (suspected) exposure to COVID-19
CPT/HCPCS: G0378; J1650

== ENCOUNTER 2021-04-17 17:28 | Observation (INO) | payer MEDICAID ==
[~2021-04-17] VITALS: Ht 162.6 cm; Wt 94.3 kg
[~2021-04-17 17:28] MED LIST changes: +ASPIRIN81 MG PO; +ISOSORB MONO30 MG PO; +PLAVIX75 MG PO; +RANOLAZINE ER500 MG PO; +TOPROL XL50 MG PO; +TRAZODONE HCL50 MG PO; +XANAX0.25 MG PO
--- NOTE | 2021-04-17 17:31 | NUR ---
TO ROOM FOR TRIAGE
[2021-04-17 18:12] LABS: HEMATOCRIT 37.9 % (37.0-47.0); HEMOGLOBIN 12.2 g/dl (12.0-16.0); IMMATURE GRANULOCYTES 0.4 % (0.0-5.0); MEAN CELL VOLUME 91.3 fL CALC (80.0-100.0); MEAN CORPUSCULAR HGB 29.4 pG CALC (26.0-32.0); MEAN CORPUSCULAR HGB CONC 32.2 g/dL CAL (32.0-36.0); NEUT# 8.12 thou/uL (2.00-7.15); RED BLOOD COUNT 4.15 mill/uL (4.20-5.60); RED CELL DISTRI WIDTH 13.8 % (11.5-15.5)
[2021-04-17 18:29] LABS: ALKALINE PHOSPHATASE 81 u/l (38-126); ANION GAP 16 (6-22 (CALC)); BILIRUBIN, TOTAL 0.4 mg/dL (0.0-1.4); BUN 19 mg/dL (7-17); BUN/CREATININE RATIO 17 (12-20 (CALC)); CARBON DIOXIDE 25 mmol/l (22-30); CHLORIDE 101 mmol/l (95-108); CREATININE 1.2 mg/dL (0.5-1.0); GFR 48 ML/MIN (>=60 (CALC)); GFR FOR AFR.AMER. 58 ML/MIN (>=60 (CALC)); POTASSIUM 4.2 mmol/l (3.5-5.1); SGOT/AST 25 u/l (14-36); SODIUM 137 mmol/l (137-146)
[2021-04-17 18:32] LABS: ALBUMIN 4.5 g/dL (3.2-5.0); TOTAL PROTEIN 8.6 g/dL (6.3-8.2)
--- NOTE | 2021-04-17 18:33 | NUR ---
PT RESTING, NO DISTRESS, STABLE ON MONITOR. CALL LIGHT WITHIN REACH.
--- NOTE | 2021-04-17 18:45 | NUR ---
REPORT GIVEN TO ASHLEY MORALEZ.
--- NOTE | 2021-04-17 18:53 | NUR ---
RECIEVED REPORT FROM JANUARY RN, ASSUMED CARE OF PATIENT.
--- NOTE | 2021-04-17 20:11 | NUR ---
REPORT CALLED TO ASHLEY SAENZ [facility]. TELE PLACED ON PATIENT. Admission Note Report Given to: DANY Transported by: X Wheelchair Stretcher Transported with: X Nurse Transporter X Patent IV O2 Refrigeration Person Location: ICU X [facility]
[2021-04-17 20:21] VITALS: BP 116/73
--- NOTE | 2021-04-17 22:00 | NUR ---
PATIENT ADMITTED FROM ER VIA WHEELCHAIR WITH ER STAFF IN ATTENDANCE. PATIENT IS ABLE TO TRANSFER HERSELF FROM W/C TO BED. STEADY ON HER FEET. AWAKE ALERT AND ORIENTEDX3. PATIENT WITH NO COMPLAINTS OF CHEST PAIN OR PALPATATIONS AT THIS TIME. SKIN IS WARM AND DRY. COLOR IS GOOD. PATIENT STATES THAT SHE HAS TAKEN 4 OR 5 NITRO TODAY AT HOME TODAY BUT NO CHEST PAIN SINCE COMING INTO THE HOSPITAL. TELE MONITO RINPLACE-READING IS SB-52 AT THIS TIME. SALINE LOCK TO LEFT WRIST INTACT AND HEALTHY AT THIS TIME. LUNGS ARE CLEAR. ABD IS SOFT WITH ACTIVE BS. NO PERIPHERAL EDEMA NOTED. PEDAL PULSE ARE PALPABLE. PATIENT MEDICATED WITH XANAX 0.25MG PO FOR ANXIETY. PROVIDE WITH SANDWICH AND DRINK FOR DINNER. APPETITE IS GOOD. ORIENTED TO ROOM AND SURROUNDINGS. INSTRUCTED ON U SE OF NURSE CALL LIGHT SYSTEM, TV REMOTE AND PHONE. SAFETY PRECAUTIONS REINFORCED. CALL LIGHT IN REACH. WILL CONT TO MONITOR.
--- NOTE | 2021-04-18 01:10 | NUR ---
PATIENT RESTING IN BED AT THIS TIME. EYES CLOSED AND RESPS ARE EVEN AND UNLABORED. TELE MONITOR IN PLACE-LAST READING WAS SB-59 WITH 1DEGREE AVB. CALL LIGHT IN REACH. WILL CONT TO MONITOR.
[2021-04-18 04:00] VITALS: BP 105/62
--- NOTE | 2021-04-18 04:16 | NUR ---
PATIENT RESTING IN BED AT THIS TIME WITH EYES CLOSED. RESPS ARE EVEN AND UNLABORED. TELE MONITOR IN PLACE. SALINE LOCK TO LEFT WRIST INTACT. CALL LIGHT IN REACH. WILL CONT TO MONITOR.
--- NOTE | 2021-04-18 06:03 | NUR ---
SPOKE TO GAVI FROM [facility] TO INITATE TRANSFER. WRITTER INFORMED THAT TRANSFER WOULD MOST LIKELY TAKE PLACE TOMORROW DUE TO HAVING HOLDS. DR NORTON NOTIFIED.
[2021-04-18 06:45] LABS: HEMATOCRIT 34.9 % (37.0-47.0); HEMOGLOBIN 11.4 g/dl (12.0-16.0); IMMATURE GRANULOCYTES 0.2 % (0.0-5.0); MEAN CELL VOLUME 91.8 fL CALC (80.0-100.0); MEAN CORPUSCULAR HGB CONC 32.7 g/dL CAL (32.0-36.0); NEUT# 7.98 thou/uL (2.00-7.15); RED BLOOD COUNT 3.8 mill/uL (4.20-5.60); RED CELL DISTRI WIDTH 14.1 % (11.5-15.5)
[2021-04-18 06:51] LABS: ALBUMIN 3.8 g/dL (3.2-5.0); ALKALINE PHOSPHATASE 69 u/l (38-126); ANION GAP 15 (6-22 (CALC)); BUN 22 mg/dL (7-17); BUN/CREATININE RATIO 19 (12-20 (CALC)); CARBON DIOXIDE 25 mmol/l (22-30); CHLORIDE 104 mmol/l (95-108); CREATININE 1.1 mg/dL (0.5-1.0); GFR 53 ML/MIN (>=60 (CALC)); GFR FOR AFR.AMER. > 60 ML/MIN (>=60 (CALC)); POTASSIUM 4.5 mmol/l (3.5-5.1); SGOT/AST 19 u/l (14-36); SODIUM 139 mmol/l (137-146)
[2021-04-18 06:52] LABS: BILIRUBIN, TOTAL 0.1 mg/dL (0.0-1.4)
--- NOTE | 2021-04-18 07:00 | NUR ---
RECIEVED REPORT FROM ASHLEY SAENZ
[2021-04-18 07:59] VITALS: BP 152/77
--- NOTE | 2021-04-18 07:59 | NUR ---
PT RESTING IN SEMI FOWLERS POSITION. PT IS A/O X3. ASSESSMENT AND VITALS COMPLETED. BP 152/77, HR 62, O2 98% ON ROOM AIR. RESPIRATIONS ARE EVEN AND UNLABORED WITH NO DISTRESS NOTED. LUNG SOUNDS ARE DIMINISHED. HEART RHYTHM NORMAL WITH TELE IN PLACE. SB WITH 1 AVB. BOWEL SOUNDS ARE ACTIVE. #20G IN LW FLUSHED, SITE APPEARS HEALTHY AND PATENT. SKIN INTACT. PT DENIES OF ANY PAINS OR DISCOMFORTS AT THIS TIME. ALL SAFETY PRECAUTIONS ARE IN PLACE WITH CALL LIGHT IN REACH. PT ENCOUAGED TO CALL FOR ASSISTANCE. WILL CONTINUE TO MONITOR.
--- NOTE | 2021-04-18 09:15 | NUR ---
DR NORTON AT BEDSIDE
--- NOTE | 2021-04-18 10:30 | NUR ---
PT REQUEST FOR PAPER TO BE FAXED TO [facility] STATING SHE IS CURRENTLY IN THE HOSPITAL AND UNABLE TO ATTEND COURT. MEDICAL LETTER FAXED WITH NUMBER PT PROVIDED.
[2021-04-18 12:15] VITALS: BP 119/73
--- NOTE | 2021-04-18 12:31 | NUR ---
PT RESTING IN SEMI FOWLERS POSITION ON PHONE. RESPIRATIONS ARE EVEN AND UNLABORED WITH NO DISTRESS NOTED ON ROOM AIR. #20G LW REMAINS IN PLACE. PT DENIES OF ANY PAINS. TELE MONITORING IN PLACE. ALL SAFETY PRECAUTIONS ARE IN PLACE WITH CALL LIGHT IN REACH. WILL CONTINUE TO MONITOR.
[2021-04-18 15:06] VITALS: BP 103/61
--- NOTE | 2021-04-18 15:37 | NUR ---
PT COMAPLAINS OF INDIGESTIONS. NEW ORDERS TO BE OBTAINED. #20G IN LW REMAINS IN PLACE. TELE MONITORING IN PLACE. PT DENIES OF ANY OTHER NEEDS AT THIS TIME. ALL SAEFTY PRECAUTIONS ARE IN PLACE WITH CALL LIGHT IN REACH. PT INSTRUCTED TO CALL FOR ASSISTANCE IF NEEDED. WILL CONTINUE TO MONITOR.
--- NOTE | 2021-04-18 16:40 | NUR ---
PEPCID ADMINISTERED. PT TOELRATED WELL.
--- NOTE | 2021-04-18 17:44 | NUR ---
ORDERS FROM DR NORTON TO INITIATE PT TO [facility] FOR HEART CATH. DR IZAGUIRRE TO BE WRAPPER STEMMER HAND.
--- NOTE | 2021-04-18 18:03 | NUR ---
SPOKE WITH GAVI FROM [facility] [phone]. CRISIS MENTAL HEALTH THERAPIST INFORMED THAT TRANSFER WAS MOSTLY LIKLEY TO TAKE PLACE TOMORROW DUE TO HAVING HOLDS. DR NORTON NOTIFIED. PT NOTFIED. PT VERBLAIZED UNDERSTANDING.
[2021-04-18 18:42] VITALS: BP 118/79
--- NOTE | 2021-04-18 18:48 | NUR ---
CONSENT OBTAINED FOR TRANSFER.
--- NOTE | 2021-04-18 21:35 | NUR ---
PATIENT RESTING IN BED AT THIS TIME-AWAKE ALERT AND ORIENTEDX3-AMBULATING IN THE ROOM WITH STEADY GAIT. PATIENT AWARE THAT SHE WILL BE TRANSFERRED TO [facility] UNDER THE CARE OF DR. IZAGUIRRE BUT PROBALY WILL NOT HAPPEN TONIGHT. STILL AWAITING BED FROM TRANSFER CENTER. PATIENT WITH NO COMPLAINTS AT THIS TIME. NO CHEST PAIN OR PALPATATIONS AT THIS TIME. TELE MONITOR IN PLACE-LAST READING WAS SR5-63 WITH 1ST DEGREE AVB. SALINE LOCK TO LEFT WRIST INTACT AND REMAINS HEALTHY AT THIS TIME. LUNGS ARE CLEAR. NO PERIPERAL EDEMA. PULSES ARE PALPABLE. MEDICATED WITH XANAX 0.25MG FOR ANXIETY. HS SNACK PROVIDED. SAFETY PRECAUTIONS REINFORCED. CALL LIGHT IN REACH. WILL CONT TO MONITOR.
[2021-04-18 23:43] VITALS: BP 112/73
--- NOTE | 2021-04-19 00:30 | NUR ---
PATIENT RESTING IN BED WITH NO COMPLAINTS AT THIS TIME. TELE MONITOR IN PLACE AND LAST READING WAS SR63 1ST DEGREE AVB. SALINE LOCK TO LEFT WRIST INTACT AND REMAINS HEALTHY. MEDICATED FOR SLEEP WITH SONATA 5MG PO. SAFETY PRECAUTIONS REINFORCED. CALL LIGHT IN REACH. WILL CONT TO MONITOR.
[2021-04-19 04:00] VITALS: BP 114/82; BP 95/49
--- NOTE | 2021-04-19 04:46 | NUR ---
PATIENT RESTING IN BED AT THIS TIME WITH EYES CLOSED. RESPS ARE EVEN AND UNLABORED. TELE MONITOR IN PLACE. CALL LIGHT IN REACH. WILL CONT TO MONITOR.
[2021-04-19 05:45] LABS: HEMATOCRIT 36.4 % (37.0-47.0); MEAN CELL VOLUME 91.2 fL CALC (80.0-100.0); MEAN CORPUSCULAR HGB 30.1 pG CALC (26.0-32.0); RED BLOOD COUNT 3.99 mill/uL (4.20-5.60); RED CELL DISTRI WIDTH 14.1 % (11.5-15.5)
[2021-04-19 06:05] LABS: ANION GAP 15 (6-22 (CALC)); BUN 17 mg/dL (7-17); BUN/CREATININE RATIO 15 (12-20 (CALC)); CARBON DIOXIDE 24 mmol/l (22-30); CHLORIDE 104 mmol/l (95-108); CREATININE 1.1 mg/dL (0.5-1.0); GFR 53 ML/MIN (>=60 (CALC)); GFR FOR AFR.AMER. > 60 ML/MIN (>=60 (CALC)); MAGNESIUM 1.6 mg/dL (1.6-2.3); POTASSIUM 4.3 mmol/l (3.5-5.1); SODIUM 139 mmol/l (137-146)
[2021-04-19 07:47] VITALS: BP 117/49
--- NOTE | 2021-04-19 08:00 | NUR ---
SHIFT CHANGE REPORT, PT SLEEPING BUT AROUSES TO VERBAL STIMULI, DENIES PAIN, TELE MONITOR IN PLACE, CALL PABLO IN REACH AND BED LOCKED IN LOWEST POSITION.
[2021-04-19 10:30] VITALS: BP 117/52
--- NOTE | 2021-04-19 12:00 | NUR ---
MEDICAL TEAM ROUNDED AND DISCUSSED PLAN OF CARE, ALL NEEDS ADDRESSED, WILL CONTINUE TO MONITOR.
[2021-04-19 15:00] VITALS: BP 104/62
--- NOTE | 2021-04-19 19:10 | NUR ---
Discharge instructions given. Patient verbalizes understanding of same. Discharged in stable condition via Ambulatory to Home with family. All belongings sent with pt.
--- NOTE | 2021-04-19 19:10 | NUR ---
PT LEFT MED SURG UNIT SELF AMBULATED, APPEARED TO BE IN STABLE CONDITION UPON DC.
== END 2021-04-19 19:55 | disposition home or self-care (01) ==
LOC: ED 17:28 → ED-I 18:35 → ED 18:46 → MS2 18:47
PROVIDERS: Family Medicine; Nurse Practitioner; Nurse Practitioner Family; ADMIT Internal Medicine; ATTEND Internal Medicine
DX: I25.111 Atherosclerotic heart disease of native coronary artery with angina pectoris with documented spasm (principal); I10 Essential (primary) hypertension; F41.9 Anxiety disorder, unspecified; F43.9 Reaction to severe stress, unspecified; K21.9 Gastro-esophageal reflux disease without esophagitis; D64.9 Anemia, unspecified; I25.2 Old myocardial infarction; Z86.711 Personal history of pulmonary embolism; Z95.5 Presence of coronary angioplasty implant and graft; Z79.02 Long term (current) use of antithrombotics/antiplatelets; Z79.82 Long term (current) use of aspirin; Z87.891 Personal history of nicotine dependence; Z20.822 Contact with and (suspected) exposure to COVID-19
CPT/HCPCS: G0378; J1650; J3475

== ENCOUNTER 2021-05-15 19:26 | Observation (INO) | payer MEDICAID ==
[~2021-05-15] VITALS: Ht 162.6 cm; Wt 93.1 kg
--- NOTE | 2021-05-15 20:00 | NUR ---
PLAN REVIEWED, WARM BLANKET PROVIDED. CALL PABLO IN REACH. WCTM
[2021-05-15 20:24] LABS: HEMATOCRIT 37.2 % (37.0-47.0); HEMOGLOBIN 11.9 g/dl (12.0-16.0); IMMATURE GRANULOCYTES 0.1 % (0.0-5.0); MEAN CELL VOLUME 88.4 fL CALC (80.0-100.0); MEAN CORPUSCULAR HGB 28.3 pG CALC (26.0-32.0); NEUT# 6.76 thou/uL (2.00-7.15); RED BLOOD COUNT 4.21 mill/uL (4.20-5.60); RED CELL DISTRI WIDTH 14.5 % (11.5-15.5)
[2021-05-15 20:41] LABS: ALKALINE PHOSPHATASE 73 u/l (38-126); AMYLASE 63 u/l (30-110); ANION GAP 15 (6-22 (CALC)); BUN 16 mg/dL (7-17); BUN/CREATININE RATIO 16 (12-20 (CALC)); CARBON DIOXIDE 23 mmol/l (22-30); CHLORIDE 101 mmol/l (95-108); GFR 59 ML/MIN (>=60 (CALC)); GFR FOR AFR.AMER. > 60 ML/MIN (>=60 (CALC)); LIPASE 48 u/l (23-300); SGOT/AST 20 u/l (14-36); SODIUM 136 mmol/l (137-146); TOTAL PROTEIN 7.6 g/dL (6.3-8.2)
[2021-05-15 20:42] LABS: BILIRUBIN, TOTAL 0.4 mg/dL (0.0-1.4)
[2021-05-15 20:53] LABS: MYOGLOBIN 24 ng/mL (0 - 62)
--- NOTE | 2021-05-15 21:00 | NUR ---
NO CHANGE IN ASSESSMENT AT THIS TIME.
--- NOTE | 2021-05-15 21:38 | NUR ---
PATIENT AMBULATES TO THE BATHROOM AT THIS TIME, STEADY GAIT.
--- NOTE | 2021-05-15 21:56 | NUR ---
REPORT TO ADOLFO, RN
[2021-05-15] MEDS ORDERED: VERAPAMIL180 M5 PO (22:12)
--- NOTE | 2021-05-15 22:45 | NUR ---
W/P/D SKIN NO C/O PAIN NO CP,SR NO ECTOPY
--- NOTE | 2021-05-15 23:05 | NUR ---
PHONE REPORT TO NURSE OBANDO ON MS
--- NOTE | 2021-05-15 23:10 | NUR ---
W/P/D SKIN SR NO ST T CHANGES NO ECTOPY NO C/O PAIN OF ANY ORIGIN PT TRANSPORTED RTO RM 261 VIA WC And tele in stable condition
[2021-05-15 23:30] VITALS: BP 126/78
--- NOTE | 2021-05-16 00:30 | NUR ---
RECEIVED REPORT FROM NURSE AG AT 2333, PATIENT TRANSPORTED BY WHEELCHAIR, AMBULATORY, PATIENT HAS A SALINE LOCK ON RAC, PATENT FLUSHES WELL, HOOKED TO TELE SB 52,LUNG SOUNDS CLEAR, BOWEL SOUNDS ACTIVE, LBM 7/19, C/O ON AND OFF PAIN ON STERNUM CRUSHING RADIATING TO LEFT ARM, TEACHER DRAMA MADE AWARE WITH ORDERS MADE.SENT TO [place].CALL LIGHT AT REACH.
[2021-05-16 03:06] LABS: HEMATOCRIT 36.9 % (37.0-47.0); HEMOGLOBIN 11.8 g/dl (12.0-16.0); IMMATURE GRANULOCYTES 0.2 % (0.0-5.0); MEAN CELL VOLUME 88.1 fL CALC (80.0-100.0); MEAN CORPUSCULAR HGB 28.2 pG CALC (26.0-32.0); NEUT# 7.23 thou/uL (2.00-7.15); RED BLOOD COUNT 4.19 mill/uL (4.20-5.60); RED CELL DISTRI WIDTH 14.3 % (11.5-15.5)
[2021-05-16 03:16] LABS: ALBUMIN 3.8 g/dL (3.2-5.0); ALKALINE PHOSPHATASE 70 u/l (38-126); ANION GAP 14 (6-22 (CALC)); BUN 16 mg/dL (7-17); BUN/CREATININE RATIO 16 (12-20 (CALC)); CARBON DIOXIDE 24 mmol/l (22-30); CHLORIDE 103 mmol/l (95-108); GFR 59 ML/MIN (>=60 (CALC)); GFR FOR AFR.AMER. > 60 ML/MIN (>=60 (CALC)); SGOT/AST 18 u/l (14-36); SODIUM 137 mmol/l (137-146); TOTAL PROTEIN 7.1 g/dL (6.3-8.2)
[2021-05-16 03:30] LABS: BILIRUBIN, TOTAL 0.2 mg/dL (0.0-1.4)
--- NOTE | 2021-05-16 03:50 | NUR ---
SPOKE TO DR POTTER, ORDERED TO OBTAIN D DIMER.
[2021-05-16 04:00] VITALS: BP 97/59
--- NOTE | 2021-05-16 05:02 | NUR ---
DR. POTTER MADE AWARE OF D-DIMER RESULTS, NO ORDERS MADE.
--- NOTE | 2021-05-16 06:50 | NUR ---
REPORT REC FROM Kiki YU RN
[2021-05-16 08:52] VITALS: BP 148/82
--- NOTE | 2021-05-16 08:52 | NUR ---
PT LAYING IN BED. A&O X4. NO DISTRESS NOTED. PT DENIES ANY SOB OR CP AT THIS TIME. CLEAR BREATH SOUNDS UPON ASUCULTATION. ACTIVE BOWEL SOUNDS X4 QUADRANTS. PT EDUCATED ON THE NEED OF URINE SAMPLE, PT VERBALIZES UNDERSTANDING. GRANULATOR IN PLACE. CONSENT OBTAINED TO OBTAIN MEDICAL RECORDS FROM [facility]. PER PT SHE HAS AN APPOINTMENT WITH DR NIX THURSDAY 05/17. PER PT SHE HAS FAILED TO FOLLOW UP WITH CERNER ANALYST DUE TO PERSONAL ISSUES. TROPS NEGATIVE AT THIS TIME. ASSESSMENT COMPLETED. DISCUSSED POC. CALL LIGHT WITHIN REACH.
--- NOTE | 2021-05-16 10:00 | NUR ---
DR CARVALHO AND Ray BARRERA APRN AT BEDSIDE DISCUSSING POC
[2021-05-16 11:13] VITALS: BP 98/56
--- NOTE | 2021-05-16 11:50 | NUR ---
PT SITTING IN BED EATING LUNCH. NO DISTRESS OR NEEDS AT THIS TIME. CALL LIGHT WITHIN REACH.
--- NOTE | 2021-05-16 12:45 | NUR ---
VERBAL ORDER OBTAINED BY Ray BARRERA APRN FOR 40 MEQ K IV, ZOFRAN FREQUENCY CHANGED TO Q3HRS, PROTONIX CHANGED FROM ORAL TO IV BID.
--- NOTE | 2021-05-16 15:08 | NUR ---
PT SLEEPING IN BED NO DISTRESS NOTED. CALL LIGHT WITHIN REACH.
[2021-05-16 15:30] VITALS: BP 96/61
--- NOTE | 2021-05-16 16:59 | NUR ---
PT UPDATED ON D/C PLANNING, PER D BRUCE DIAZ PT TO FOLLOW UP SCHEDULED WITH DR NIX TOMORROW. PT VERBALIZING UNDERSTANDING
--- NOTE | 2021-05-16 17:49 | NUR ---
Discharge instructions given. Patient verbalizes understanding of same. Discharged in stable condition via wheelchair to home with staff. All belongings sent with pt including home medications given. Pt encouraged to follow up with dr hood as scheduled, pt encouraged to return if new or worsening symptoms.
== END 2021-05-16 17:50 | disposition home or self-care (01) ==
LOC: ED 19:26 → ED-I 21:28 → ED 21:43 → MS2 21:44
PROVIDERS: Emergency Medicine; Nurse Practitioner Family; ADMIT Internal Medicine; ATTEND Internal Medicine
DX: I25.118 Atherosclerotic heart disease of native coronary artery with other forms of angina pectoris (principal); I10 Essential (primary) hypertension; F41.9 Anxiety disorder, unspecified; K21.9 Gastro-esophageal reflux disease without esophagitis; Z86.718 Personal history of other venous thrombosis and embolism; Z79.02 Long term (current) use of antithrombotics/antiplatelets; Z87.891 Personal history of nicotine dependence; Z95.5 Presence of coronary angioplasty implant and graft; Z20.822 Contact with and (suspected) exposure to COVID-19
CPT/HCPCS: G0378

== ENCOUNTER 2021-06-16 00:04 | Observation (INO) | payer MEDICAID ==
[~2021-06-16] VITALS: Ht 162.6 cm; Wt 86.2 kg
[~2021-06-16 00:04] MED LIST changes: +VERAPAMIL180 M5 PO
[2021-06-16 01:25] LABS: URINE BILIRUBIN - DIPSTICK NEGATIVE (NEGATIVE); URINE BLOOD DIPSTICK NEGATIVE (NEGATIVE); URINE COLOR YELLOW; URINE GLUCOSE - DIPSTICK NEGATIVE (NEGATIVE); URINE KETONE NEGATIVE (NEGATIVE); URINE LEUK ESTERASE NEGATIVE (NEGATIVE); URINE PROTEIN - DIPSTICK NEGATIVE (NEG-TRACE); URINE SPECIFIC GRAVITY >=1.030; URINE UROBILINOGEN - DIPSTICK 0.2 E.U./dL (0.2)
[2021-06-16 01:27] LABS: URINE NITRITE - DIPSTICK NEGATIVE (Negative)
[2021-06-16 01:47] LABS: HEMATOCRIT 33.8 % (37.0-47.0); HEMOGLOBIN 10.7 g/dl (12.0-16.0); IMMATURE GRANULOCYTES 0.6 % (0.0-5.0); MEAN CELL VOLUME 86.4 fL CALC (80.0-100.0); MEAN CORPUSCULAR HGB 27.4 pG CALC (26.0-32.0); MEAN CORPUSCULAR HGB CONC 31.7 g/dL CAL (32.0-36.0); NEUT# 11.09 thou/uL (2.00-7.15); RED BLOOD COUNT 3.91 mill/uL (4.20-5.60); RED CELL DISTRI WIDTH 14.7 % (11.5-15.5)
[2021-06-16 02:05] LABS: ALBUMIN 3.9 g/dL (3.2-5.0); ALKALINE PHOSPHATASE 82 u/l (38-126); ANION GAP 14 (6-22 (CALC)); BUN 19 mg/dL (7-17); BUN/CREATININE RATIO 20 (12-20 (CALC)); CARBON DIOXIDE 24 mmol/l (22-30); CHLORIDE 104 mmol/l (95-108); GFR 59 ML/MIN (>=60 (CALC)); GFR FOR AFR.AMER. > 60 ML/MIN (>=60 (CALC)); LIPASE 70 u/l (23-300); POTASSIUM 3.9 mmol/l (3.5-5.1); SGOT/AST 19 u/l (14-36); SODIUM 138 mmol/l (137-146); TOTAL PROTEIN 7.5 g/dL (6.3-8.2)
[2021-06-16 02:16] LABS: MYOGLOBIN 20 ng/mL (0 - 62)
[2021-06-16 02:21] LABS: BILIRUBIN, TOTAL 0.1 mg/dL (0.0-1.4)
[2021-06-16 07:00] VITALS: BP 100/51
[2021-06-16 09:44] VITALS: BP 100/51
== END 2021-06-16 14:20 | disposition home or self-care (01) | DRG 303 ==
LOC: ED 00:04 → ED-I 04:11 → ED 04:34 → ED-I 04:35
PROVIDERS: Emergency Medicine; ADMIT Hospitalist; ATTEND Hospitalist
DX: I25.118 Atherosclerotic heart disease of native coronary artery with other forms of angina pectoris (principal); D72.829 Elevated white blood cell count, unspecified; I10 Essential (primary) hypertension; F41.9 Anxiety disorder, unspecified; K21.9 Gastro-esophageal reflux disease without esophagitis; Z95.5 Presence of coronary angioplasty implant and graft; Z79.82 Long term (current) use of aspirin; Z86.718 Personal history of other venous thrombosis and embolism; Z79.02 Long term (current) use of antithrombotics/antiplatelets; Z87.891 Personal history of nicotine dependence; Z20.822 Contact with and (suspected) exposure to COVID-19

== ENCOUNTER 2021-07-07 11:39 | Inpatient (IN) | payer MEDICAID ==
[~2021-07-07] VITALS: Ht 162.6 cm; Wt 93.0 kg
--- NOTE | 2021-07-07 12:00 | NUR ---
PATIENT SEEN IN OUTSIDE WAITING AREA. O2 SATURATION 92% PULSE 108. MD NOTIFIED OF PATIENT STATUS
--- NOTE | 2021-07-07 13:49 | NUR ---
PATIENT TO ROOM FOR BEDSIDE EXAM
--- NOTE | 2021-07-07 14:36 | NUR ---
Reassessment of patient completed. No distress noted.
[2021-07-07 15:12] LABS: HEMATOCRIT 32.3 % (37.0-47.0); HEMOGLOBIN 10.3 g/dl (12.0-16.0); IMMATURE GRANULOCYTES 0.1 % (0.0-5.0); MEAN CELL VOLUME 81.6 fL CALC (80.0-100.0); MEAN CORPUSCULAR HGB CONC 31.9 g/dL CAL (32.0-36.0); NEUT# 8.68 thou/uL (2.00-7.15); RED BLOOD COUNT 3.96 mill/uL (4.20-5.60); RED CELL DISTRI WIDTH 15.6 % (11.5-15.5)
--- NOTE | 2021-07-07 15:21 | NUR ---
PATIENT AMBULATED IN ROOM REMAINS 90% O2 SAT W/O OXYGEN @ THIS TIME
[2021-07-07 15:31] LABS: ALBUMIN 3.9 g/dL (3.2-5.0); ALKALINE PHOSPHATASE 84 u/l (38-126); ANION GAP 16 (6-22 (CALC)); BILIRUBIN, TOTAL 0.3 mg/dL (0.0-1.4); BUN 14 mg/dL (7-17); BUN/CREATININE RATIO 14 (12-20 (CALC)); C-REACTIVE PROTEIN 3.7 mg/dL (0-0.9); CARBON DIOXIDE 20 mmol/l (22-30); CHLORIDE 103 mmol/l (95-108); CREATININE 1.1 mg/dL (0.5-1.0); GFR 53 ML/MIN (>=60 (CALC)); GFR FOR AFR.AMER. > 60 ML/MIN (>=60 (CALC)); POTASSIUM 3.8 mmol/l (3.5-5.1); SGOT/AST 42 u/l (14-36); SODIUM 135 mmol/l (137-146); TOTAL PROTEIN 7.5 g/dL (6.3-8.2)
--- NOTE | 2021-07-07 17:00 | NUR ---
Reassessment of patient completed. No distress noted.
--- NOTE | 2021-07-07 19:00 | NUR ---
REPORT TO OIL DERRICK OPERATOR NURSE
--- NOTE | 2021-07-07 19:10 | NUR ---
IN ROOM INTRODUCED SELF TO PT. NO C/O O2 2 LIT N/C APPLIED. O2 SAT 88-87% NOW WITH O2 94-95%.
--- NOTE | 2021-07-07 20:10 | NUR ---
RESTING ON STRETCHER, AWAITING ROOM UPSTAIRS. NO C/O ASSESSMENT UNCHANGED.
--- NOTE | 2021-07-07 21:10 | NUR ---
EMILY PACKED FOR ADMISSION, NO C/O.
--- NOTE | 2021-07-07 21:39 | NUR ---
Admission Note Report Given to: CHERIE CHAHAL Transported by: Wheelchair X Stretcher Transported with: X Nurse Transporter X Patent IV X O2 X College Service Officer Location: ICU X MS2
[2021-07-07 22:00] VITALS: BP 101/55
--- NOTE | 2021-07-07 22:00 | NUR ---
REPORT RECIVED FROM ER NURSE. PT ARRIVED TO THE UNIT VIA SRETCHER ESCORTED BY ER STAFF. PT BREATHING EVEN AND UNLABORED. O2 SATURATIONS WNL. LUNGS CLEAR IN ALL LOBES, EXCEPT BASES. BASES ARE DIMINSHED. INSTRUCTED PT ON SLEEPING PRONE TO INCREASE OXYGENATION. PT VERBALIZED UNDERSTANDING TO INSTRUCTION GIVEN. ASSESSMENTS COMPLETED, PLEASE SEE DOCUMENTATION. SAFETY PRECAUTIONS IN PLACE, PT EDUCATED DEPUTY COURT CLERK LIGHT SYSTEM. WILL MONITOR
--- NOTE | 2021-07-08 | NUR ---
PT RESTING QUIETLY IN BED WITH HER EYES CLOSED. BREATHING EVEN AND UNLABORED. NO COMPLAINTS VOICED. DENIES PAIN. SAFETY PRECAUTIONS REMAIN IN PLACE, CALL LIGHT WITHIN REACH. WILL MONITOR
[2021-07-08 04:00] VITALS: BP 104/66
--- NOTE | 2021-07-08 04:00 | NUR ---
PT RESTING QUIETLY IN ROOM, BREATHING IS EVEN AND UNLABORED. OXYGENATION HAS REMAINED WNL. PT TAKES OFF O2 AT TIMES, FURTHEWR INSTRUCTION INDICATED. NO COMPLAINTS VOICED AT THIS TIME. DENIES PAIN. SAFETY PRECAUTIONS REMAIN IN PLACE, PT REMINDED TO ASK FOR ASSISTANCE WHEN GETTING UP, PT IS INDEPENDENT WITH ALL ADL'S. WILL MONITOR
[2021-07-08 07:25] VITALS: BP 110/60
--- NOTE | 2021-07-08 07:25 | NUR ---
PATIENT RESTING IN BED AT THIS TIME WITH 02 OFF AND AND SPO2 IS 97%. PATIENT DENIES ANY NEEDS AND OR PAIN. PATIENT DENIES ANY SHORTNESS OF BREATH. WIDE AREA NETWORK ADMINISTRATOR DONE AT THIS TIME SEE INTERVENTIONS. LUNG FILES ARE CLEAR. PATIENT HAS TELE MONITOR IN PLACE AND BEING MONITORED BY ED. PATIENT ENCOURGED TO USE HER INCENTIVE SPIROMETER AND TO US 02 NECESSARY.
[2021-07-08] MEDS ORDERED: FAMOTIDINE20 M1 PO (08:35)
[2021-07-08] MEDS ORDERED: VERAPAMIL HYDR180 MG PO (08:36)
--- NOTE | 2021-07-08 09:16 | NUR ---
PT CONSENTED TO RECEIVE PNEUMONIA VAX, HOWEVER SHE IS NOT A CANDIDATE BASED ON AGE AND PMH.
[2021-07-08 10:30] VITALS: BP 108/57
--- NOTE | 2021-07-08 12:05 | NUR ---
PATIENT SITTING UP IN BED 02 OFF SINCE 11:30 AM AND SPO2 IS 91%. PATIENT DENEIS ANY SHORTNESS OF BREATH AND OR PAIN. NO NOTED COUGHING AT THIS TIME. SIDERAILS ARE UP CALL LIGHT WITHIN REACH.
--- NOTE | 2021-07-08 13:32 | NUR ---
PATIENT REQUESTING XANAX AT THIS TIME. 0.25MG GIVEN AT THIS TIME. PATIENT STATES SHE IS JUST FEELING LITTLE RESTLESS AND SPO2 TAKEN AT THIS TIME AND IS 85% PATIENT RETURNED O2 ON AT 2L AND PULSE OX RETURNED TO 92% PATIENT ADVISED TO LEAVE IT ON AT THIS TIME.
[2021-07-08 15:00] VITALS: BP 100/56
--- NOTE | 2021-07-08 15:14 | NUR ---
SPO2 AT THIS TIME ON 2L IS 96% . O2 REMOVED AT THIS TIME AND WILL MONITOR SPO2.
--- NOTE | 2021-07-08 16:10 | NUR ---
PATIENT RESTING IN BED AT THIS TIME SIDERAILS ARE UP CALL LIGHT WITHIN REACH DENIES ANY SHORTNESS OF BREATH, PATIENT ON ROOM AIR AND SPO2 IS 93% AT THIS TIME. SIDERAILS ARE UP CALL LIGHT WITHIN REACH. ENCOURAGE PATIENT TO PRONE BUT PATENT REFUSES. SIDERRAILS ARE UP CALL LIGHT WITHIN [facility].
[2021-07-08 19:30] VITALS: BP 102/59
--- NOTE | 2021-07-08 20:00 | NUR ---
PT RESTING IN BED QUIETLY. BREATHING IS EVEN AND UNLABORED. PT IS UTILIZING HER O2 AT 2L NEEDED. PT IS ABLE TO KEEP HER O2 SATURATIONS WNL EVEN WHEN OFF O2. LUNGS ARE DIMINSHED THROUGHOUT. NO COMPLAINTS VOICED. PT IS EXPERIENCING SOME ANXIETY, RICARDA OREDERED FOR PT DAILY AND SHE RECIVED HER DOSE DURING DAY SHIFT. EDUCAED PT ON CALMING TECHNIQUES, MUSIC THERAPY. PT VERBALIZED UNDERSTANDING. WILL MONITOR.
[2021-07-09] VITALS: BP 104/56
--- NOTE | 2021-07-09 | NUR ---
PT RESTING QUIETLY AT THIS TIME. IV TO LAC INFILTRATED. ATTEMPTED SITE WITHOUT SUCCESS. ER NURSE CAME UP FROM ER AND WAS ABLE TO START A SITE TO HER RIGHT WRIST WITHOUT DIFFICULTY. SITE FLUSHES EASILY. PT CONTINUES TO USE O2 NEEDED. SAFETY PRECAUTIONS REMAIN IN PLACE. NO COMPLAINTS VOICED. WILL MONITOR
[2021-07-09 04:00] VITALS: BP 105/63
--- NOTE | 2021-07-09 04:19 | NUR ---
PT RESTING IN BED ON HER LEFT SIDE. NO COMPLAINTS VOICED. BREATHING IS EVEN AND UNLABORED. NO S/S OF DISTRESS NOTED. PT IS ABLE TO TRANSFER HERSELF FROM BED TO BSC WHEN NEEDED WITHOUT ANY S/S OF RESPIRATORY DISTRESS. O2 IS NOT CURRENTLY ON PT PER HER CHOICE. SAFETY PRECAUTIONS REMAIN IN PLACE, BED IN LOW POSITION, FREQ USED ITEMS WITHIN REACH, CALL LIGHT WITHIN REACH. WILL CONTINUE TO MONITOR
[2021-07-09 07:25] VITALS: BP 110/62
--- NOTE | 2021-07-09 07:25 | NUR ---
PATIENT RESTING IN BED AT THIS TIME SPO2 ON ROOM AIR IS 92%. PATIENT DENIES ANY SHORTNESS OF BREATH AT THIS TIME. MEAT PACKER DONE SEE INTERVENTIONS. PATINET LUNG FILEDS ARE CLEAR IN UPPER CASTAÑEDA AND DIMINISHED IN LOWER CASTAÑEDA. PATIENT PRESENT WITHOUT COUGH AT THIS TIME. TELE MONITOR IS ON AND BEING MONTIORED BY ED. SIDERAILS ARE UP CALL LIGHT WITHIN REACH.
[2021-07-09 10:23] VITALS: BP 136/64
--- NOTE | 2021-07-09 10:45 | NUR ---
SIX MINUTE WALK TEST PREFORMED AT THIS TIME. PATIENT HAS BEEN ON ROOM AIR ALL SHIFT AND PREVIOUS SHIFT. SPO2 AT THIS TIME IS 98%. PATIENT WALKED IN HALLWAY FOR 5 MINUTES RETURNED TO ROOM SPO2 CURRENTLY IS 95% PATIENT AT FINAL REST IS 95%. RESULTS SHARED WITH DR. HOLLAND AND ABHAY KIM.
--- NOTE | 2021-07-09 11:02 | NUR ---
PATIENT RESTING IN BED AT THIS TIME. PATIENT REMAINS ON ROOM AIR AND SPO2 IS 95% AT THIS TIME. PATIENT DENEIS ANY PAIN OR NEEDS. PATIENT HAS NON-PRODUCTIVE COUGH AT THIS TIME. SIDERAILS ARE UP CALL LIGHT IS WITHIN REACH. TELE MONITOR IN PLACE AND BEING MONITORED BY ED.
[2021-07-09] MEDS ORDERED: DEXAMETHASON6 MG PO (11:32)
[2021-07-09] MEDS ORDERED: AZITHROMYCIN500 MG PO (11:32)
--- NOTE | 2021-07-09 12:11 | NUR ---
PATIENT DC AT THIS TIME. PATIENT VERBALIZES UNDERSTANDING OF D/C INSTRUCTIONS. IV REMOVED TIP INTACT AND TELE MONITORED REMOVED AND ED ([facility]) CALLED AT THIS TMIE.
--- NOTE | 2021-07-09 12:40 | NUR ---
Discharge instructions given. Patient verbalizes understanding of same. Discharged in stable condition via Ambulatory to Home with *Other. All belongings sent with pt. PATIENT WANTED TO BE AMBULATORY AND RX. WERE CALLED INTO PHARMACY. ([facility])
== END 2021-07-09 12:40 | disposition home or self-care (01) | DRG 177 ==
LOC: ED 11:39 → ED-I 17:35 → ED 17:52 → ED-I 17:53 → MS2 21:33
PROVIDERS: Family Medicine; ADMIT Internal Medicine; ATTEND Internal Medicine
DX: U07.1 COVID-19 (principal); J12.82 Pneumonia due to coronavirus disease 2019; J96.00 Acute respiratory failure, unspecified whether with hypoxia or hypercapnia; I10 Essential (primary) hypertension; I25.10 Atherosclerotic heart disease of native coronary artery without angina pectoris; F41.9 Anxiety disorder, unspecified; E66.9 Obesity, unspecified; F32.9 Major depressive disorder, single episode, unspecified; K21.9 Gastro-esophageal reflux disease without esophagitis; Z87.891 Personal history of nicotine dependence; Z95.5 Presence of coronary angioplasty implant and graft
CPT/HCPCS: J1650; Q9967

== ENCOUNTER 2021-12-06 15:49 | Emergency (ER) | payer MEDICAID ==
[~2021-12-06] VITALS: Ht 162.6 cm; Wt 76.0 kg
[~2021-12-06 15:49] MED LIST changes: +AZITHROMYCIN500 MG PO; +DEXAMETHASON6 MG PO; +FAMOTIDINE20 M1 PO; +VERAPAMIL HYDR180 MG PO
[2021-12-06 16:46] LABS: HEMATOCRIT 23.9 % (37.0-47.0); HEMOGLOBIN 7.4 g/dl (12.0-16.0); IMMATURE GRANULOCYTES 0.4 % (0.0-5.0); MEAN CELL VOLUME 88.2 fL CALC (80.0-100.0); MEAN CORPUSCULAR HGB 27.3 pG CALC (26.0-32.0); NEUT# 10.51 thou/uL (2.00-7.15); RED BLOOD COUNT 2.71 mill/uL (4.20-5.60); RED CELL DISTRI WIDTH 16.9 % (11.5-15.5)
[2021-12-06 17:00] LABS: ALBUMIN 4.1 g/dL (3.2-5.0); ALKALINE PHOSPHATASE 85 u/l (38-126); ANION GAP 15 (6-22 (CALC)); BUN 18 mg/dL (7-17); BUN/CREATININE RATIO 19 (12-20 (CALC)); CARBON DIOXIDE 25 mmol/l (22-30); CHLORIDE 103 mmol/l (95-108); GFR 59 ML/MIN (>=60 (CALC)); GFR FOR AFR.AMER. > 60 ML/MIN (>=60 (CALC)); POTASSIUM 4.3 mmol/l (3.5-5.1); SGOT/AST 33 u/l (14-36); SODIUM 139 mmol/l (137-146); TOTAL PROTEIN 7.9 g/dL (6.3-8.2)
[2021-12-06 17:02] LABS: BILIRUBIN, TOTAL 0.5 mg/dL (0.0-1.4)
[2021-12-06 17:18] LABS: URINE BILIRUBIN - DIPSTICK NEGATIVE (NEGATIVE); URINE BLOOD DIPSTICK MODERATE (NEGATIVE); URINE COLOR YELLOW; URINE GLUCOSE - DIPSTICK NEGATIVE (NEGATIVE); URINE KETONE NEGATIVE (NEGATIVE); URINE LEUK ESTERASE NEGATIVE (NEGATIVE); URINE PROTEIN - DIPSTICK NEGATIVE (NEG-TRACE); URINE SPECIFIC GRAVITY >=1.030; URINE UROBILINOGEN - DIPSTICK 0.2 E.U./dL (0.2)
[2021-12-06 17:19] LABS: URINE NITRITE - DIPSTICK NEGATIVE (Negative)
[2021-12-06 17:27] LABS: URINE SQUAMOUS EPITHELIAL CELL MODERATE EPI/hpf (0-FEW); URINE WBC 0-2 WBC/hpf (0-5)
[2021-12-06 19:40] VITALS: BP 126/58
== END 2021-12-06 19:40 | disposition short-term general hospital (02) ==
LOC: ED 15:49
PROVIDERS: Family Medicine
DX: D64.9 Anemia, unspecified (principal); N93.9 Abnormal uterine and vaginal bleeding, unspecified; I10 Essential (primary) hypertension; F41.9 Anxiety disorder, unspecified; Z95.5 Presence of coronary angioplasty implant and graft; Z20.822 Contact with and (suspected) exposure to COVID-19

== ENCOUNTER 2022-07-30 15:54 | Emergency (ER) | payer MEDICAID ==
[2022-07-30] VITALS (24 sets, daily range): BP systolic 90–127; BP diastolic 44–95
[~2022-07-30] VITALS: Ht 162.6 cm; Wt 91.0 kg
[2022-07-30 16:36] LABS: HEMATOCRIT 30.6 % (37.0-47.0); HEMOGLOBIN 9.2 g/dl (12.0-16.0); IMMATURE GRANULOCYTES 0.2 % (0.0-5.0); MEAN CORPUSCULAR HGB 23.1 pG CALC (26.0-32.0); MEAN CORPUSCULAR HGB CONC 30.1 g/dL CAL (32.0-36.0); NEUT# 7.66 thou/uL (2.00-7.15); RED BLOOD COUNT 3.99 mill/uL (4.20-5.60); RED CELL DISTRI WIDTH 23.2 % (11.5-15.5)
[2022-07-30 16:49] LABS: MEAN CELL VOLUME 76.7 fL CALC (80.0-100.0)
[2022-07-30 16:52] LABS: ALBUMIN 4.2 g/dL (3.2-5.0); ALKALINE PHOSPHATASE 97 u/l (38-126); ANION GAP 18 (6-22 (CALC)); BILIRUBIN, TOTAL 0.7 mg/dL (0.0-1.4); BUN 13 mg/dL (7-17); BUN/CREATININE RATIO 11 (12-20 (CALC)); CARBON DIOXIDE 25 mmol/l (22-30); CHLORIDE 102 mmol/l (95-108); CREATININE 1.1 mg/dL (0.5-1.0); GFR FOR AFR.AMER. > 60 ML/MIN (>=60 (CALC)); GFR OTHER RACES 53 ML/MIN (>=60 (CALC)); POTASSIUM 4.7 mmol/l (3.5-5.1); SGOT/AST 22 u/l (14-36); SODIUM 141 mmol/l (137-146); TOTAL PROTEIN 7.4 g/dL (6.3-8.2)
== END 2022-07-30 22:23 | disposition home or self-care (01) ==
LOC: ED 15:54 → ED-I 20:57 → ED 22:23
PROVIDERS: Family Medicine
DX: R07.89 Other chest pain (principal); I10 Essential (primary) hypertension; F41.9 Anxiety disorder, unspecified; Z95.5 Presence of coronary angioplasty implant and graft; Z86.718 Personal history of other venous thrombosis and embolism

== ENCOUNTER 2022-12-18 13:44 | Observation (INO) | payer OTHER ==
[~2022-12-18] VITALS: Ht 162.6 cm; Wt 92.6 kg
[2022-12-18] MEDS ORDERED: ATORVASTATIN CA80 MG PO (14:14)
--- NOTE | 2022-12-18 14:21 | NUR ---
PATIENT TO ROOM 12
[2022-12-18 14:27] VITALS: BP 110/49
[2022-12-18 14:53] LABS: URINE BILIRUBIN - DIPSTICK NEGATIVE (NEGATIVE); URINE BLOOD DIPSTICK LARGE (NEGATIVE); URINE COLOR YELLOW; URINE GLUCOSE - DIPSTICK NEGATIVE (NEGATIVE); URINE KETONE NEGATIVE (NEGATIVE); URINE PH 6.5 (4.5-8.0); URINE PROTEIN - DIPSTICK 100 mg/dL (NEG-TRACE); URINE SPECIFIC GRAVITY 1.025; URINE UROBILINOGEN - DIPSTICK 0.2 E.U./dL (0.2)
[2022-12-18 14:54] LABS: URINE LEUK ESTERASE MODERATE (NEGATIVE); URINE NITRITE - DIPSTICK NEGATIVE (Negative)
[2022-12-18 14:56] LABS: HEMATOCRIT 25.7 % (37.0-47.0); HEMOGLOBIN 7.2 g/dl (12.0-16.0); IMMATURE GRANULOCYTES 0.2 % (0.0-5.0); MEAN CELL VOLUME 71.4 fL CALC (80.0-100.0); PLATELET COUNT 717 thou/uL (130-400); RED CELL DISTRI WIDTH 23.3 % (11.5-15.5)
--- NOTE | 2022-12-18 15:00 | NUR ---
Reassessment of patient completed. No distress noted. Call light within reach. No needs communicated at this time.
[2022-12-18 15:02] LABS: URINE BACTERIA MANY hpf; URINE SQUAMOUS EPITHELIAL CELL MANY EPI/hpf (0-FEW); URINE WBC >100 WBC/hpf (0-5)
[2022-12-18 15:13] VITALS: BP 106/58
[2022-12-18 15:20] LABS: BAND 0 % (0-8); MANUAL DIFFERENTIAL YES; NUCLEATED RED BLOOD CELL 6 /100WBC (0-1); PLATELET ESTIMATE MARKED INCREASE
[2022-12-18 15:21] LABS: ALBUMIN 4.6 g/dL (3.2-5.0); ALKALINE PHOSPHATASE 93 u/l (38-126); ANION GAP 11 (6-22 (CALC)); BILIRUBIN, TOTAL 0.3 mg/dL (0.02-1.3); BUN 14 mg/dL (7-17); BUN/CREATININE RATIO 13 (12-20 (CALC)); CARBON DIOXIDE 27 mmol/l (22-30); CHLORIDE 107 mmol/l (95-108); CREATININE 1.1 mg/dL (0.5-1.0); GFR FOR AFR.AMER. > 60 ML/MIN (>=60 (CALC)); GFR OTHER RACES 53 ML/MIN (>=60 (CALC)); SGOT/AST 24 u/l (14-36); SODIUM 140 mmol/l (137-146); TOTAL PROTEIN 8.1 g/dL (6.3-8.2)
--- NOTE | 2022-12-18 15:34 | NUR ---
I/V STARTED, LABS OBTAINED ORDERED.
--- NOTE | 2022-12-18 16:00 | NUR ---
Reassessment of patient completed. No distress noted.
[2022-12-18 16:01] VITALS: BP 95/59
[2022-12-18 17:07] VITALS: BP 109/55
--- NOTE | 2022-12-18 17:30 | NUR ---
PT ARRIVES TO [place] [id number] VIA WHEELCHAIR FROM THE ER ACCOMPANIED BY NURSES JUVENTINO AND AMISHA. PT IS ALERT AND ORIENTED X 3, AMBULATORY WITHOUT DIFFICULTY. LUNGS CLEAR, RA. VENOFER WAS STARTED WHEN PT ARRIVED TO UNIT, REQUIRED LOWERING RATE PER SENSATION IN ARM WITH IV IN IT, NOW RUNS AT 50 ML/HR. ADMISSION ASSESSMENT COMPLETED, MEAL TRAY PROVIDED.
[2022-12-18 18:42] VITALS: BP 97/50
--- NOTE | 2022-12-18 19:30 | NUR ---
PATIENT RESTING IN BED AT THIS TIME WITH EYES CLOSED. RESPS ARE EVEN AND UNLAB ORED. O2 SAT IS 94% ON RA. VENOFER HAS FINISHED AND IV SITE TO RAC FLUSHED PER PROTOCOL. TELE MONITOR IN PLACE-LAST READING WAS SR-60'S. CALL LIGHT IN REACH. WILL CONT TO MONITOR.
--- NOTE | 2022-12-18 21:30 | NUR ---
STILL AWAITING PRBC'S ORDERED-SPOKE WITH BLOOD BANK AND ARE NOT SURE WHEN THE BLOOD PRODUCT WILL ARRIVE-WILL CALL WHEN AVAILABLE. PATIENT WAS NOTIFIED OF THE DELAY IN TRANSFUSION DUE TO ANTIBODIES. WILL CONT TO MONITOR. CALL LIGHT IN REACH.
--- NOTE | 2022-12-18 23:36 | NUR ---
PATIENT RESTING IN BED-AWAKE AND ALERT. STILL WATING FOR PRBC'S TO TRANSFUSE. PATIENT STATES THAT SHE IS HUNGRY AND PROVIDED WITH PREPAIRED MEAL AND GINGERALE. SAFETY PRECAUTIONS REINFORCED. CALL LIGHT IN REACH. WILL CONT TO MONITOR.
[2022-12-18 23:39] VITALS: BP 96/56
[2022-12-19] VITALS (8 sets, daily range): BP systolic 88–143; BP diastolic 38–79
--- NOTE | 2022-12-19 01:29 | NUR ---
PATIENT RESTING IN BED AT THIS TIME-NO COMPLAINTS AT THIS TIME. 1ST UNIT OF PRBC'S HUNG ORDERED VIA [facility] SITE-UNIT# [id number] [phone] [id number] ORDERED. PATIENT EDUCATED REGUARDING POSSIBLE ADVERSE REACTION TO BLOOD TRANSFUSION-FEVER CHILLS, HEADACHE, SHAKES, RIGORS, BACK PAIN. VERBALIZES UNDERSTANDING OF THE STATED. MONITORING PATIENT AT BEDSIDE PER PROTOCOL.
--- NOTE | 2022-12-19 03:30 | NUR ---
PATIENT RESTING IN BED POSITIONED ON RIGHT SIDE WITH EYES CLOSED. PRBC'S HAVE FINISHED-UNIT#[id number] [phone] [id number] COMPLETED WITHOUT ANY ADVERSE REACTIONS. TELE MONITOR IN PLACE-STILL SR IN 60'S. SALINE LOCK TO RAC INTACT. CALL LIGHT IN REACH. WILL CONT TO MONITOR.
--- NOTE | 2022-12-19 05:00 | NUR ---
PATIENT RESTING IN BED-POSITIONED ON RIGHT SIDE WITH EYES CLOSED. RESPS ARE EVEN AND UNLABORED. TELE MONITOR IN PLACE. LAST READING WAS SR-74. SALINE LOCK TO RAC INTACT. CALL LIGHT IN REACH,WILL CONT TO MONITOR.
[2022-12-19 06:18] LABS: HEMATOCRIT 27.1 % (37.0-47.0); HEMOGLOBIN 7.9 g/dl (12.0-16.0); MEAN CELL VOLUME 72.7 fL CALC (80.0-100.0); MEAN CORPUSCULAR HGB 21.2 pG CALC (26.0-32.0); MEAN CORPUSCULAR HGB CONC 29.2 g/dL CAL (32.0-36.0); RED BLOOD COUNT 3.73 mill/uL (4.20-5.60); RED CELL DISTRI WIDTH 23.6 % (11.5-15.5)
[2022-12-19 07:01] LABS: ALBUMIN 3.8 g/dL (3.2-5.0); ALKALINE PHOSPHATASE 94 u/l (38-126); ANION GAP 10 (6-22 (CALC)); BILIRUBIN, TOTAL 0.2 mg/dL (0.02-1.3); BUN 13 mg/dL (7-17); BUN/CREATININE RATIO 11 (12-20 (CALC)); CARBON DIOXIDE 24 mmol/l (22-30); CHLORIDE 108 mmol/l (95-108); CREATININE 1.1 mg/dL (0.5-1.0); GFR FOR AFR.AMER. > 60 ML/MIN (>=60 (CALC)); GFR OTHER RACES 53 ML/MIN (>=60 (CALC)); MAGNESIUM 1.8 mg/dL (1.6-2.3); POTASSIUM 3.8 mmol/l (3.5-5.1); SGOT/AST 22 u/l (14-36); SODIUM 139 mmol/l (137-146); TOTAL PROTEIN 7.2 g/dL (6.3-8.2)
--- NOTE | 2022-12-19 08:00 | NUR ---
PT IN BED RESTING, EYES CLOSED. PT AWAKE TO VOICE, ALERT AND ORIENTED X 3. PT HAS NO C/O PAIN AT THIS TIME. IV TO RAC INTACT. TELE ON WITH ALL LEAD ATTACHED. CALL LIGHT WITHIN REACH AND ALL SAFETY PRECAUTIONS IN PLACE AT THIS TIME.
--- NOTE | 2022-12-19 12:00 | NUR ---
PT UP IN BED EATING [facility], NO CHANGE IN MENTAL STATUS. PT HAS NO C/O PAIN. IV TO RAC INTACT. PT HAS CALL LIGHT WITHIN REACH AND SAFETY MEASURES IN PLACE.
--- NOTE | 2022-12-19 16:00 | NUR ---
PT SITTIN UP IN BED WATCHING TV, A&O X 3. PT HAS NO C/O PAIN AT THIS TIME. NO CHANGE IN STATUS. PT HAS CALL LIGHT WITHIN REACH AND ALL SAFETY PRECAUTIONS IN PLACE.
--- NOTE | 2022-12-19 19:20 | NUR ---
PATIENT RESTING IN BED. ALERT AND ORIENTED. ABLE TO MAKE NEEDS KNOWN. ASSESSMENT COMPLETE. DENIES ANY PAIN. NO DISTRESS NOTED. VOICED VAGINAL BLEEDING SUBSIDED. BED REMAINS IN LOW POSITION. CALL PABLO IN REACH.
[2022-12-20] VITALS (12 sets, daily range): BP systolic 87–174; BP diastolic 29–84
--- NOTE | 2022-12-20 00:25 | NUR ---
PATIENT RESTING IN BED WITH HOB ELEVATED. NO DISTRESS NOTED. NO COMPLAINTS OF PAIN. BED REMAINS IN LOW POSITION. CALL PABLO IN REACH.
--- NOTE | 2022-12-20 03:25 | NUR ---
PATIENT RESTING IN BED. NO COMPLAINTS VOICED. REMAINS ALERT. DENIES ANY PAIN. BED REMAINS IN LOW POSITION. CALL LIGHT IN REACH.
[2022-12-20 04:40] LABS: HEMATOCRIT 29.7 % (37.0-47.0); HEMOGLOBIN 8.7 g/dl (12.0-16.0); MEAN CELL VOLUME 72.6 fL CALC (80.0-100.0); MEAN CORPUSCULAR HGB 21.3 pG CALC (26.0-32.0); MEAN CORPUSCULAR HGB CONC 29.3 g/dL CAL (32.0-36.0); RED BLOOD COUNT 4.09 mill/uL (4.20-5.60); RED CELL DISTRI WIDTH 23.8 % (11.5-15.5)
--- NOTE | 2022-12-20 04:40 | NUR ---
INFORMED SANITIZER PROVIDER OF PATIENTS LOW BP. PATIENT ASYMPTOMATIC. NO NEW ORDERS AT THIS TIME.
[2022-12-20 04:53] LABS: ALBUMIN 4.2 g/dL (3.2-5.0); ALKALINE PHOSPHATASE 98 u/l (38-126); ANION GAP 11 (6-22 (CALC)); BILIRUBIN, TOTAL 0.2 mg/dL (0.02-1.3); BUN 16 mg/dL (7-17); BUN/CREATININE RATIO 18 (12-20 (CALC)); CARBON DIOXIDE 25 mmol/l (22-30); CHLORIDE 108 mmol/l (95-108); CREATININE 0.9 mg/dL (0.5-1.0); GFR FOR AFR.AMER. > 60 ML/MIN (>=60 (CALC)); GFR OTHER RACES > 60 ML/MIN (>=60 (CALC)); MAGNESIUM 1.9 mg/dL (1.6-2.3); POTASSIUM 3.9 mmol/l (3.5-5.1); SGOT/AST 27 u/l (14-36); SODIUM 140 mmol/l (137-146); TOTAL PROTEIN 7.7 g/dL (6.3-8.2)
--- NOTE | 2022-12-20 08:00 | NUR ---
PT IN BED SLEEPING, AROUSED WITH VOICE. ALERT AND ORIENTED X 3. PT HAS NO C/O PAIN AT THIS TIME. TELE ON WITH ALL LEADS ATTACHED. IV SITE TO RAC, CLEAN AND INTACT. CALL LIGHT WITHIN REACH AND ALL SAFETY MEASURES IN PLACE.
--- NOTE | 2022-12-20 12:00 | NUR ---
PT IN BED RESTING, NO CHANGE IN MENTAL STATUS. PT HAS NO C/O PAIN AT THIS TIME. IV SITE TO RAC, PATENT AND FLUSHES WELL. CALL LIGHT WITHIN REACH.
--- NOTE | 2022-12-20 16:00 | NUR ---
PT IN BED RESTING, ALERT AND ORIENTED. PT HAS NO C/O PAIN AT THIS TIME. IV SITE TO RAC INTACT. PT HAS CALL LIGHT WITHIN REACH AND SAFETY PRECAUTIONS IN PLACE.
--- NOTE | 2022-12-20 20:00 | NUR ---
RECEIVED REPORT FROM DAYSHIFT NURSE. PT RESTING IN BED IN SEMI YU'S POSITION, AWAKE, WATCHING TV. FAMILY AT BEDSIDE. PT IS A&OX3. ASSESSMENT COMPLETED. PT IS ON ROOM AIR, BREATHING IS EVEN AND UNLABORED. IV IS PATENT AND FLUSHES WELL. PT DENIES ANY PAIN OR DISCOMFORT AT THIS TIME. TELEMETRY IN PLACE, MONITORED BY ED. PT ASKED FOR TWO JUICES AND ICE, PROVIDED IT. CALL LIGHT AND BEDSIDE TABLE WITHIN REACH. SAFETY PRECAUTIONS IN PLACE.
--- NOTE | 2022-12-20 23:40 | NUR ---
PT RESTING IN BED IN LOW SEMI-YU'S POSITION, EYES CLOSED. TELEMETRY IN PLACE. NO SIGNS OF PAIN OR DISTRESS NOTED AT THIS TIME. CALL LIGTH AND BEDSIDE TABLE WITHIN REACH, SAFETY PRECAUTIONS IN PLACE.
[2022-12-21 00:36] VITALS: BP 118/47
--- NOTE | 2022-12-21 04:00 | NUR ---
PT RESTING IN BED IN LOW SEMI-YU'S POSITION, EYES CLOSED. NO SIGNS OF PAIN OR DISTRESS NOTED AT THIS TIME. ON ROOM AIR, BREATHING EVEN AND UNLABORED. IV IS PATENT AND FLUSHES WELL. TELEMETRY IN PLACE, MONITORED BY ED. CALL LIGHT AND BEDISE TABLE WITHIN REACH. SAFETY PRECAUTIONS IN PLACE.
[2022-12-21 04:04] VITALS: BP 109/46
[2022-12-21 05:30] LABS: HEMATOCRIT 28.6 % (37.0-47.0); HEMOGLOBIN 8.4 g/dl (12.0-16.0); IMMATURE GRANULOCYTES 0.5 % (0.0-5.0); MEAN CELL VOLUME 73.3 fL CALC (80.0-100.0); MEAN CORPUSCULAR HGB 21.5 pG CALC (26.0-32.0); MEAN CORPUSCULAR HGB CONC 29.4 g/dL CAL (32.0-36.0); PLATELET COUNT 723 thou/uL (130-400); RED CELL DISTRI WIDTH 24.3 % (11.5-15.5)
[2022-12-21 05:43] LABS: ALBUMIN 3.7 g/dL (3.2-5.0); ALKALINE PHOSPHATASE 102 u/l (38-126); ANION GAP 13 (6-22 (CALC)); BILIRUBIN, TOTAL 0.2 mg/dL (0.02-1.3); BUN 14 mg/dL (7-17); BUN/CREATININE RATIO 16 (12-20 (CALC)); CARBON DIOXIDE 23 mmol/l (22-30); CHLORIDE 107 mmol/l (95-108); CREATININE 0.9 mg/dL (0.5-1.0); GFR FOR AFR.AMER. > 60 ML/MIN (>=60 (CALC)); GFR OTHER RACES > 60 ML/MIN (>=60 (CALC)); MAGNESIUM 1.6 mg/dL (1.6-2.3); POTASSIUM 4.2 mmol/l (3.5-5.1); SGOT/AST 19 u/l (14-36); SODIUM 138 mmol/l (137-146); TOTAL PROTEIN 6.8 g/dL (6.3-8.2)
[2022-12-21 06:05] LABS: MANUAL DIFFERENTIAL YES
[2022-12-21 06:24] LABS: BAND 1 % (0-8); NUCLEATED RED BLOOD CELL 9 /100WBC (0-1)
[2022-12-21 06:36] VITALS: BP 108/45
--- NOTE | 2022-12-21 08:09 | NUR ---
PT LAYING IN BED RESTING WITH EYES CLOSED, AWAKENED TO VOICE. A&OX3, PT HAS NO C/O PAIN AT THIS TIME. IV SITE TO THE ANTHONY, INTACT AND CLEAN. TELE ON AND LEADS ATTACHED. CALL LIGHT WITHIN REACH AND SAFETY PRECAUTIONS IN PLACE.
[2022-12-21 11:07] VITALS: BP 106/45
--- NOTE | 2022-12-21 12:00 | NUR ---
PT SITTING UP IN BED EATING LUNCH. PT HAS NO CHANGE IN STATUS. PT HAS NO C/O PAIN AT THIS TIME. CALL LIGHT WITHIN REACH AND SAFETY MEASURES IN PLACE.
[2022-12-21] MEDS ORDERED: KEFLEX500 MG PO (13:40)
--- NOTE | 2022-12-21 16:13 | NUR ---
Discharge instructions given. Patient verbalizes understanding of same. Discharged in stable condition via Wheelchair to Home with staff. All belongings sent with pt.
== END 2022-12-21 16:05 | disposition home or self-care (01) ==
LOC: ED 13:44 → ED-I 15:30 → ED 15:38 → MS2 15:39
PROVIDERS: Emergency Medicine; Nurse Practitioner Family; ADMIT Internal Medicine; ATTEND Internal Medicine
DX: D62 Acute posthemorrhagic anemia (principal); N39.0 Urinary tract infection, site not specified; N92.0 Excessive and frequent menstruation with regular cycle; I10 Essential (primary) hypertension; I25.118 Atherosclerotic heart disease of native coronary artery with other forms of angina pectoris; F41.9 Anxiety disorder, unspecified; K21.9 Gastro-esophageal reflux disease without esophagitis; B96.20 Unspecified Escherichia coli [E. coli] as the cause of diseases classified elsewhere; Z87.891 Personal history of nicotine dependence; Z95.5 Presence of coronary angioplasty implant and graft
CPT/HCPCS: G0378; J1756; P9016

== ENCOUNTER 2023-05-28 06:31 | Day surgery (SDC) | payer OTHER ==
[~2023-05-28] VITALS: Ht 162.6 cm; Wt 93.4 kg
[~2023-05-28 06:31] MED LIST changes: +ATORVASTATIN CA80 MG PO; +CITALOPRAM40 MG PO; +FAMOTIDINE20 M3 PO; +KEFLEX500 MG PO
[2023-05-28] MEDS ORDERED: FAMOTIDINE20 M3 PO (08:07)
[2023-05-28 08:35] VITALS: BP 116/69
[2023-05-31] MEDS ORDERED: AMOXICILLIN500 MG PO (10:52)
[2023-05-31] MEDS ORDERED: CLARITHROMYCIN500 MG PO (10:52)
== END 2023-05-28 08:50 | disposition home or self-care (01) ==
LOC: ENDO 06:31 → ORM 09:25
PROVIDERS: ATTEND Surgery
DX: K29.70 Gastritis, unspecified, without bleeding (principal); B96.81 Helicobacter pylori [H. pylori] as the cause of diseases classified elsewhere; K44.9 Diaphragmatic hernia without obstruction or gangrene; Z12.11 Encounter for screening for malignant neoplasm of colon; K57.30 Diverticulosis of large intestine without perforation or abscess without bleeding; K64.8 Other hemorrhoids; I10 Essential (primary) hypertension; F41.9 Anxiety disorder, unspecified; Z95.5 Presence of coronary angioplasty implant and graft; Z79.899 Other long term (current) drug therapy

== ENCOUNTER 2023-12-10 23:35 | Emergency (ER) | payer OTHER ==
[~2023-12-10] VITALS: Ht 162.6 cm; Wt 93.0 kg
[~2023-12-10 23:35] MED LIST changes: +AMOXICILLIN500 MG PO; +CLARITHROMYCIN500 MG PO
[2023-12-11 00:51] VITALS: BP 104/52
[2023-12-11] MEDS ORDERED: Pantoprazole Sodium 40 MG VIAL (Protonix) IV ONE (00:55)
[2023-12-11] MEDS ORDERED: LIDOCAINE VISCOUS 2% 15 ML UDC PO ONE (00:55)
[2023-12-11] MEDS ORDERED: SODIUM CHLORIDE 0.9% 1,000 ML IV ONE (01:00)
[2023-12-11] MEDS ORDERED: ONDANSETRON HCl 4 MG/2 ML SDV IV ONE (01:00)
[2023-12-11] MEDS ORDERED: MORPHINE SULFATE 4 MG/ML VIAL IV ONE (01:00)
[2023-12-11 01:48] LABS: BASO% 0.3 % (0-3); EOS% 1.6 % (0-8); HEMATOCRIT 31.6 % (37.0-47.0); HEMOGLOBIN 9.5 g/dl (12.0-16.0); IMMATURE GRANULOCYTES 0.2 % (0.0-5.0); LYMPH% 23.3 % (15-41); MEAN CELL VOLUME 71.7 fL CALC (80.0-100.0); MEAN CORPUSCULAR HGB 21.5 pG CALC (26.0-32.0); MEAN CORPUSCULAR HGB CONC 30.1 g/dL CAL (32.0-36.0); NEUT# 8.22 thou/uL (2.00-7.15); NEUT% 64.6 % (42-76); RED BLOOD COUNT 4.41 mill/uL (4.20-5.60); RED CELL DISTRI WIDTH 21.3 % (11.5-15.5)
[2023-12-11 02:01] LABS: ALBUMIN 4.2 g/dL (3.2-5.0); ALKALINE PHOSPHATASE 82 u/l (38-126); AMYLASE 68 u/l (30-110); BUN 16 mg/dL (7-17); BUN/CREATININE RATIO 17 (12-20 (CALC)); CARBON DIOXIDE 21 mmol/l (22-30); CHLORIDE 109 mmol/l (95-108); CREATININE 0.9 mg/dL (0.5-1.0); GFR FOR AFR.AMER. > 60 ML/MIN (>=60 (CALC)); GFR OTHER RACES > 60 ML/MIN (>=60 (CALC)); LIPASE 98 u/l (23-300); SODIUM 141 mmol/l (137-146)
[2023-12-11 02:04] LABS: ANION GAP 16 (6-22 (CALC)); BILIRUBIN, TOTAL 0.6 mg/dL (0.02-1.3); POTASSIUM 5.1 mmol/l (3.5-5.1); SGOT/AST 44 u/l (14-36); TOTAL PROTEIN 8.2 g/dL (6.3-8.2)
[2023-12-11 02:56] LABS: URINE BILIRUBIN - DIPSTICK Negative (NEGATIVE); URINE BLOOD DIPSTICK Negative (NEGATIVE); URINE CLARITY Clear; URINE GLUCOSE - DIPSTICK Negative (NEGATIVE); URINE KETONE Negative (NEGATIVE); URINE LEUK ESTERASE Negative (Negative); URINE NITRITE - DIPSTICK Negative (Negative); URINE PH 6.5 (4.5-8.0); URINE PROTEIN - DIPSTICK Negative (NEG-TRACE); URINE UROBILINOGEN - DIPSTICK 0.2 E.U./dL (0.2)
[2023-12-11 02:58] LABS: URINE COLOR Yellow
[2023-12-11 03:02] VITALS: BP 98/52
[2023-12-11 03:31] VITALS: BP 98/55
[2023-12-11 04:01] VITALS: BP 95/53
[2023-12-11 04:31] VITALS: BP 93/54
[2023-12-11] MEDS ORDERED: PAXLOVID PO (05:18)
== END 2023-12-11 05:56 | disposition home or self-care (01) ==
LOC: ED 23:35
PROVIDERS: Emergency Medicine
DX: U07.1 COVID-19 (principal); R10.13 Epigastric pain; R11.2 Nausea with vomiting, unspecified; I25.10 Atherosclerotic heart disease of native coronary artery without angina pectoris; E78.5 Hyperlipidemia, unspecified; F41.9 Anxiety disorder, unspecified; F17.200 Nicotine dependence, unspecified, uncomplicated; Z95.5 Presence of coronary angioplasty implant and graft; Z90.81 Acquired absence of spleen; Z86.718 Personal history of other venous thrombosis and embolism
CPT/HCPCS: Q9967; S0164

== ENCOUNTER 2024-05-02 05:04 | Emergency (ER) | payer OTHER ==
[~2024-05-02] VITALS: Ht 162.6 cm; Wt 95.0 kg
[~2024-05-02 05:04] MED LIST changes: +BACTRIM DS1 TAB PO; +DICYCLOMINE HYD10 MG PO; +PAXLOVID PO
[2024-05-02] MEDS ORDERED: SODIUM CHLORIDE 0.9% 1,000 ML IV ONE (05:25)
[2024-05-02] MEDS ORDERED: ACETAMINOPHEN 500 MG TAB PO ONE (05:25)
[2024-05-02] MEDS ORDERED: KETOROLAC TROMETHAMINE 30 MG/ML SDV IV ONE (05:30)
[2024-05-02 05:46] VITALS: BP 130/73
[2024-05-02 06:01] VITALS: BP 117/68
[2024-05-02 06:15] VITALS: BP 119/65
[2024-05-02 06:20] LABS: URINE BILIRUBIN - DIPSTICK Negative (NEGATIVE); URINE BLOOD DIPSTICK Large (NEGATIVE); URINE GLUCOSE - DIPSTICK Negative (NEGATIVE); URINE KETONE Negative (NEGATIVE); URINE PROTEIN - DIPSTICK >=300 mg/dL (NEG-TRACE); URINE SPECIFIC GRAVITY >=1.030; URINE UROBILINOGEN - DIPSTICK 0.2 E.U./dL (0.2)
[2024-05-02 06:20] LABS: BASO% 0.3 % (0-3); EOS% 1.2 % (0-8); HEMATOCRIT 29.3 % (37.0-47.0); HEMOGLOBIN 8.9 g/dl (12.0-16.0); IMMATURE GRANULOCYTES 0.2 % (0.0-5.0); LYMPH% 14.6 % (15-41); MEAN CELL VOLUME 74.7 fL CALC (80.0-100.0); MEAN CORPUSCULAR HGB 22.7 pG CALC (26.0-32.0); MEAN CORPUSCULAR HGB CONC 30.4 g/dL CAL (32.0-36.0); MONO% 9.3 % (2-13); NEUT# 14.22 thou/uL (2.00-7.15); NEUT% 74.4 % (42-76); RED BLOOD COUNT 3.92 mill/uL (4.20-5.60); RED CELL DISTRI WIDTH 19.4 % (11.5-15.5)
[2024-05-02 06:25] LABS: URINE COLOR Yellow; URINE LEUK ESTERASE Small (NEGATIVE); URINE NITRITE - DIPSTICK Negative (Negative)
[2024-05-02 06:30] VITALS: BP 105/58
[2024-05-02 06:30] LABS: ALBUMIN 4.3 g/dL (3.2-5.0); ALKALINE PHOSPHATASE 90 u/l (38-126); ANION GAP 10 (6-22 (CALC)); BILIRUBIN, TOTAL 0.4 mg/dL (0.02-1.3); BUN 23 mg/dL (7-17); BUN/CREATININE RATIO 22 (12-20 (CALC)); CARBON DIOXIDE 23 mmol/l (22-30); CHLORIDE 111 mmol/l (95-108); CREATININE 1.1 mg/dL (0.5-1.0); ESTIMATED GFR 60 ML/MIN (>=90 (CALC)); MAGNESIUM 1.8 mg/dL (1.6-2.3); POTASSIUM 3.8 mmol/l (3.5-5.1); SGOT/AST 22 u/l (14-36); SODIUM 140 mmol/l (137-146); TOTAL PROTEIN 8.2 g/dL (6.3-8.2)
[2024-05-02 06:30] LABS: URINE RBC >100 RBC/hpf (0-5); URINE WBC 50-100 WBC/hpf (0-5)
[2024-05-02 06:31] LABS: URINE BACTERIA MODERATE hpf; URINE EPITHELIAL CELLS MODERATE EPI/hpf (0-FEW)
[2024-05-02] MEDS ORDERED: Levofloxacin 750 mg Premix 150 ML IV ONE (06:35)
[2024-05-02 06:45] VITALS: BP 105/59
[2024-05-02] MEDS ORDERED: MORPHINE SULFATE 4 MG/ML VIAL IV ONE (07:20)
[2024-05-02] MEDS ORDERED: OMEPRAZOLE DR40 MG PO (08:27)
[2024-05-02] MEDS ORDERED: CIPROFLOXACN500 MG PO (08:27)
[2024-05-02] MEDS ORDERED: MOTRIN800 MG PO (08:27)
[2024-05-02 08:32] VITALS: BP 105/59
== END 2024-05-02 08:48 | disposition home or self-care (01) ==
LOC: ED 05:04
PROVIDERS: Family Medicine
DX: N39.0 Urinary tract infection, site not specified (principal); I10 Essential (primary) hypertension; F41.9 Anxiety disorder, unspecified; Z95.5 Presence of coronary angioplasty implant and graft
CPT/HCPCS: Q9967

== ENCOUNTER 2024-05-04 11:49 | Emergency (ER) | payer OTHER ==
[~2024-05-04] VITALS: Ht 162.6 cm; Wt 96.0 kg
[~2024-05-04 11:49] MED LIST changes: +CIPROFLOXACN500 MG PO; +MOTRIN800 MG PO; +OMEPRAZOLE DR40 MG PO
[2024-05-04 12:02] VITALS: BP 106/45
[2024-05-04 12:33] LABS: URINE BILIRUBIN - DIPSTICK Negative (NEGATIVE); URINE BLOOD DIPSTICK Moderate (NEGATIVE); URINE GLUCOSE - DIPSTICK Negative (NEGATIVE); URINE KETONE Negative (NEGATIVE); URINE NITRITE - DIPSTICK Negative (Negative); URINE PH 5.5 (4.5-8.0); URINE PROTEIN - DIPSTICK Negative (NEG-TRACE); URINE SPECIFIC GRAVITY >=1.030; URINE UROBILINOGEN - DIPSTICK 0.2 E.U./dL (0.2)
[2024-05-04 12:35] LABS: URINE COLOR Yellow; URINE LEUK ESTERASE Small (NEGATIVE)
[2024-05-04 12:36] LABS: URINE BACTERIA FEW hpf; URINE EPITHELIAL CELLS FEW EPI/hpf (0-FEW); URINE MUCUS MODERATE hpf (NONE-FEW)
[2024-05-04 13:04] LABS: BASO% 0.9 % (0-3); EOS% 3.3 % (0-8); HEMATOCRIT 27.9 % (37.0-47.0); HEMOGLOBIN 8.4 g/dl (12.0-16.0); IMMATURE GRANULOCYTES 0.2 % (0.0-5.0); LYMPH% 30.7 % (15-41); MEAN CELL VOLUME 74.4 fL CALC (80.0-100.0); MEAN CORPUSCULAR HGB 22.4 pG CALC (26.0-32.0); MEAN CORPUSCULAR HGB CONC 30.1 g/dL CAL (32.0-36.0); MONO% 9.2 % (2-13); NEUT# 6.52 thou/uL (2.00-7.15); NEUT% 55.7 % (42-76); RED BLOOD COUNT 3.75 mill/uL (4.20-5.60); RED CELL DISTRI WIDTH 19.6 % (11.5-15.5)
[2024-05-04 13:25] LABS: ALBUMIN 3.9 g/dL (3.2-5.0); BILIRUBIN, TOTAL 0.5 mg/dL (0.02-1.3); POTASSIUM 4.7 mmol/l (3.5-5.1); TOTAL PROTEIN 7.3 g/dL (6.3-8.2)
[2024-05-04] MEDS ORDERED: PHENAZOPYRIDINE HCL 100 MG/TAB PO ONE (13:30)
[2024-05-04] MEDS ORDERED: PHENAZOPYRIDIN100 M1 PO (13:37)
[2024-05-04 13:44] VITALS: BP 91/57
[2024-05-04 13:56] VITALS: BP 91/57
== END 2024-05-04 14:06 | disposition home or self-care (01) ==
LOC: ED 11:49
PROVIDERS: Family Medicine
DX: N39.0 Urinary tract infection, site not specified (principal); B95.7 Other staphylococcus as the cause of diseases classified elsewhere; D64.9 Anemia, unspecified; I25.10 Atherosclerotic heart disease of native coronary artery without angina pectoris; Z87.440 Personal history of urinary (tract) infections; Z95.5 Presence of coronary angioplasty implant and graft

== ENCOUNTER 2024-07-01 01:22 | Emergency (ER) | payer OTHER ==
[~2024-07-01] VITALS: Ht 162.6 cm; Wt 94.0 kg
[2024-07-01] VITALS (11 sets, daily range): BP systolic 95–123; BP diastolic 46–75
[~2024-07-01 01:22] MED LIST changes: +PHENAZOPYRIDIN100 M1 PO
[2024-07-01] MEDS ORDERED: SODIUM CHLORIDE 0.9% 1,000 ML IV ONE (01:55)
[2024-07-01 02:03] LABS: BASO% 0.8 % (0-3); EOS% 3.6 % (0-8); HEMATOCRIT 28.4 % (37.0-47.0); HEMOGLOBIN 8.5 g/dl (12.0-16.0); IMMATURE GRANULOCYTES 0.8 % (0.0-5.0); MEAN CORPUSCULAR HGB 20.6 pG CALC (26.0-32.0); MEAN CORPUSCULAR HGB CONC 29.9 g/dL CAL (32.0-36.0); MONO% 10.3 % (2-13); NEUT# 6.27 thou/uL (2.00-7.15); NEUT% 52.5 % (42-76); RED BLOOD COUNT 4.12 mill/uL (4.20-5.60); RED CELL DISTRI WIDTH 19.4 % (11.5-15.5)
[2024-07-01 02:09] LABS: MEAN CELL VOLUME 68.9 fL CALC (80.0-100.0)
[2024-07-01 02:15] LABS: ALBUMIN 4.2 g/dL (3.2-5.0); ANION GAP 11 (6-22 (CALC)); BILIRUBIN, TOTAL 0.3 mg/dL (0.02-1.3); BUN 19 mg/dL (7-17); BUN/CREATININE RATIO 17 (12-20 (CALC)); CARBON DIOXIDE 24 mmol/l (22-30); CHLORIDE 110 mmol/l (95-108); CREATININE 1.1 mg/dL (0.5-1.0); ESTIMATED GFR 60 ML/MIN (>=90 (CALC)); MAGNESIUM 1.6 mg/dL (1.6-2.3); SGOT/AST 28 u/l (14-36); SODIUM 141 mmol/l (137-146); TOTAL PROTEIN 7.9 g/dL (6.3-8.2)
[2024-07-01 02:18] LABS: ACT PARTIAL THROMBO TIME 24.1 SECONDS (20.0-32.5)
[2024-07-01 02:25] LABS: ALKALINE PHOSPHATASE 99 u/l (38-126)
[2024-07-01 02:30] LABS: PROTHROMBIN TIME 9.9 SECONDS (9.0-12.5)
[2024-07-01 02:46] LABS: TSH, 3RD GENERATION 3.14 uIU/mL (0.47 - 4.68)
[2024-07-01 03:36] LABS: URINE BILIRUBIN - DIPSTICK Negative (NEGATIVE); URINE BLOOD DIPSTICK Negative (NEGATIVE); URINE GLUCOSE - DIPSTICK Negative (NEGATIVE); URINE KETONE Negative (NEGATIVE); URINE LEUK ESTERASE Negative (NEGATIVE); URINE NITRITE - DIPSTICK Negative (Negative); URINE PROTEIN - DIPSTICK Negative (NEG-TRACE); URINE SPECIFIC GRAVITY 1.025; URINE UROBILINOGEN - DIPSTICK 0.2 E.U./dL (0.2)
[2024-07-01 03:38] LABS: URINE COLOR Yellow
[2024-07-01] MEDS ORDERED: CHROMAGEN1 CAP PO (03:50)
== END 2024-07-01 04:12 | disposition home or self-care (01) ==
LOC: ED 01:22
PROVIDERS: Family Medicine
DX: R42 Dizziness and giddiness (principal); D64.9 Anemia, unspecified; I10 Essential (primary) hypertension; F41.9 Anxiety disorder, unspecified; Z95.5 Presence of coronary angioplasty implant and graft

== ENCOUNTER 2024-12-04 11:58 | Observation (INO) | payer OTHER ==
[~2024-12-04] VITALS: Ht 162.6 cm; Wt 98.0 kg
[2024-12-04] VITALS (18 sets, daily range): BP systolic 108–126; BP diastolic 61–83
[~2024-12-04 11:58] MED LIST changes: +CHROMAGEN1 CAP PO
[2024-12-04] MEDS ORDERED: ASPIRIN 81 MG/TAB PO ONE (12:10)
[2024-12-04] MEDS ORDERED: ONDANSETRON HCl 4 MG/2 ML SDV IV STA (12:22)
[2024-12-04] MEDS ORDERED: Pantoprazole Sodium 40 MG VIAL (Protonix) IV STA (12:22)
[2024-12-04 12:41] LABS: URINE BILIRUBIN - DIPSTICK Negative (NEGATIVE); URINE BLOOD DIPSTICK Negative (NEGATIVE); URINE GLUCOSE - DIPSTICK Negative (NEGATIVE); URINE KETONE Negative (NEGATIVE); URINE NITRITE - DIPSTICK Negative (Negative); URINE PROTEIN - DIPSTICK 100 mg/dL (NEG-TRACE); URINE SPECIFIC GRAVITY >=1.030
[2024-12-04 12:54] LABS: URINE COLOR Yellow; URINE LEUK ESTERASE Small (NEGATIVE)
[2024-12-04 12:55] LABS: URINE BACTERIA MODERATE hpf; URINE EPITHELIAL CELLS MODERATE EPI/hpf (0-FEW); URINE WBC 20-50 WBC/hpf (0-5)
[2024-12-04 13:07] LABS: BASO% 0.4 % (0-3); EOS% 0.6 % (0-8); IMMATURE GRANULOCYTES 0.6 % (0.0-5.0); LYMPH% 9.9 % (15-41); MEAN CORPUSCULAR HGB 27.5 pG CALC (26.0-32.0); MEAN CORPUSCULAR HGB CONC 31.8 g/dL CAL (32.0-36.0); MONO% 10.2 % (2-13); NEUT# 9.05 thou/uL (2.00-7.15); NEUT% 78.3 % (42-76); RED BLOOD COUNT 4.91 mill/uL (4.20-5.60)
[2024-12-04 13:09] LABS: HEMATOCRIT 42.5 % (37.0-47.0); HEMOGLOBIN 13.5 g/dl (12.0-16.0); MEAN CELL VOLUME 86.6 fL CALC (80.0-100.0)
[2024-12-04 13:15] LABS: ALBUMIN 4.5 g/dL (3.2-5.0); ALKALINE PHOSPHATASE 98 u/l (38-126); BUN 17 mg/dL (7-17); BUN/CREATININE RATIO 19 (12-20 (CALC)); CHLORIDE 102 mmol/l (95-108); CREATININE 0.9 mg/dL (0.5-1.0); ESTIMATED GFR 77 ML/MIN (>=90 (CALC)); POTASSIUM 4.1 mmol/l (3.5-5.1); SGOT/AST 38 u/l (14-36); SODIUM 140 mmol/l (137-146); TOTAL PROTEIN 8.5 g/dL (6.3-8.2)
[2024-12-04 13:19] LABS: ANION GAP 12 (6-22 (CALC)); BILIRUBIN, TOTAL 0.5 mg/dL (0.02-1.3); CARBON DIOXIDE 30 mmol/l (22-30)
[2024-12-04 13:27] LABS: LIPASE 249 u/l (23-300)
[2024-12-04] MEDS ORDERED: FAMOTIDINE 10MG/ML 2ML SDV IV ONE (14:05)
[2024-12-04] MEDS ORDERED: CLONAZEPAM0.5 M1 PO (16:54)
[2024-12-04] MEDS ORDERED: ACETAMINOPHEN 325 MG/TAB PO PRN (17:15)
[2024-12-04] MEDS ORDERED: Zaleplon 5 MG/CAP PO PRN (17:15)
[2024-12-04] MEDS ORDERED: MAGNESIUM HYDROXIDE 30 ML UDC PO PRN (17:15)
[2024-12-04] MEDS ORDERED: OZEMPIC2 MG (17:16)
[2024-12-04] MEDS ORDERED: BUSPAR10 M1 PO (17:17)
[2024-12-04] MEDS ORDERED: ARIPIPRAZOLE10 MG (17:17)
[2024-12-04] MEDS ORDERED: AMLODIPINE BESYL5 MG PO (17:52)
[2024-12-04] MEDS ORDERED: LEVOTHYROXIN50 MCG PO (17:53)
[2024-12-04] MEDS ORDERED: clonazePAM 0.5 MG/TAB PO PRN (22:35)
[2024-12-05 03:51] VITALS: BP 109/67
[2024-12-05 05:34] LABS: CHOLESTEROL HDL RATIO 3.2 (<4.4 (CALC)); MAGNESIUM 1.7 mg/dL (1.6-2.3)
[2024-12-05 07:10] VITALS: BP 113/63
[2024-12-05 08:28] LABS: BASO% 0.7 % (0-3); EOS% 1.8 % (0-8); HEMATOCRIT 40.4 % (37.0-47.0); HEMOGLOBIN 12.9 g/dl (12.0-16.0); IMMATURE GRANULOCYTES 0.2 % (0.0-5.0); LYMPH% 19.8 % (15-41); MEAN CELL VOLUME 86.9 fL CALC (80.0-100.0); MEAN CORPUSCULAR HGB 27.7 pG CALC (26.0-32.0); MEAN CORPUSCULAR HGB CONC 31.9 g/dL CAL (32.0-36.0); MONO% 14.3 % (2-13); NEUT# 5.73 thou/uL (2.00-7.15); NEUT% 63.2 % (42-76); RED BLOOD COUNT 4.65 mill/uL (4.20-5.60); RED CELL DISTRI WIDTH 22.1 % (11.5-15.5)
[2024-12-05 08:39] LABS: ALBUMIN 3.7 g/dL (3.2-5.0); BILIRUBIN, TOTAL 0.3 mg/dL (0.02-1.3); CREATININE 0.9 mg/dL (0.5-1.0); TOTAL PROTEIN 6.9 g/dL (6.3-8.2)
[2024-12-05] MEDS ORDERED: Pantoprazole Sodium 40 MG VIAL (Protonix) IV SCH (09:00)
[2024-12-05] MEDS ORDERED: CEFUROXIME500 MG PO (11:25)
[2024-12-05] MEDS ORDERED: CARAFATE1 GM PO (11:26)
== END 2024-12-05 12:54 | disposition home or self-care (01) ==
LOC: ED 11:58 → ED-I 16:00 → ED 16:15 → MS2 16:16
PROVIDERS: Family Medicine; Nurse Practitioner; Nurse Practitioner Family; ADMIT Internal Medicine; ATTEND Internal Medicine
DX: I10 Essential (primary) hypertension (principal); R10.13 Epigastric pain; K92.0 Hematemesis; N39.0 Urinary tract infection, site not specified; B95.4 Other streptococcus as the cause of diseases classified elsewhere; F41.9 Anxiety disorder, unspecified; I25.119 Atherosclerotic heart disease of native coronary artery with unspecified angina pectoris; D68.9 Coagulation defect, unspecified; Z90.81 Acquired absence of spleen; Z87.891 Personal history of nicotine dependence; Z95.5 Presence of coronary angioplasty implant and graft
CPT/HCPCS: G0378; J0696; J2405; J2470